=== PATIENT | female | born 1970 | race Hispanic/Latino ===

== ENCOUNTER 2016-08-29 19:56 | Emergency (ER) | payer OTHER ==
[~2016-08-29] VITALS: Ht 149.9 cm; Wt 58.1 kg
[~2016-08-29 19:56] MED LIST: ACETAMINOPHEN-1 EAC3 PO; GEMFIBROZIL600 M1 PO; HUMALOG100 UNIT/1 SC; HUMALOG100 UNIT/2 SC; LANTUS SOL100 UNIT/1 SC; LANTUS100 UNIT/1 SC; METFORMIN HCL500 M3 PO; TIZANIDINE HCL2 M1 PO; VALTREX1000 MG PO
--- NOTE | 2016-08-29 20:54 | ED GENERAL ADULT ---
History of Present Illness General Chief Complaint: General Adult Stated Complaint: PAIN WHEN SHE GOES TO BATHROOM , BURNING Source: patient Exam Limitations: no limitations Vital Signs & Intake/Output Vital Signs & Intake/Output Vital Signs Date Time Temp Pulse Resp B/P B/P Pulse O2 O2 Flow FiO2 Mean Ox Delivery Rate 08/294 97.1 93 20 122/80 95 Room Air 08/29 2002 98.1 106 20 145/96 95 Room Air Allergies Coded Allergies: No Known Allergies (11/20/15) Reconcile Medications Albuterol Sulfate (Ventolin Hfa) 90 MCG HFA.AER.AD 2 PUF INH PRN RESPIRATORY (Reported) Albuterol Sulfate 2.5 MG/3 ML (0.083 %) VIAL.NEB 1 Vial INH/LEMUEL PRN RESPIRATORY (Reported) Fenofibrate 160 MG TABLET 1 TAB PO DAILY CHOLESTEROL/TRIGLYCERIDES (Reported) Gabapentin 100 MG CAPSULE 1 CAP PO TID NERVE PAIN (Reported) Gemfibrozil 600 MG TABLET 1 TAB PO BID CHOLESTEROL (Reported) Insulin Lispro (Humalog) 100 UNIT/1 ML VIAL 20 UNITS SC 4 TIMES/DAY DIABETES (Reported) Insulin-Lantus (Lantus) 100 UNIT/1 ML VIAL 40 UNITS SC BID DIABETES (Reported ) Metformin HCl 500 MG TABLET 1 TAB PO BID DIABETES (Reported) Ondansetron (Zofran Odt) 4 MG TAB.RAPDIS 1 TAB SL TID PRN nausea Paroxetine HCl 20 MG TABLET 1 TAB PO DAILY MENTAL HEALTH (Reported) Quetiapine Fumarate 200 MG TABLET 1 TAB PO QPM MENTAL HEALTH (Reported) Tizanidine HCl 2 MG TABLET 1 TAB PO BID MUSCLE RELAXER (Reported) Triage Note: PRESENTS TO ED FOR EVALUATION OF HYPERGLYCEMIA AND BURNING UPON URINATION THAT BEGAN 3 DAYS AGO. Triage Nurses Notes Reviewed? yes HPI: Patient is a 46-year-old female presents complaining of diffuse abdominal pain, nausea, vomiting, urinary urgency, dysuria. Symptoms 3 days. Patient has vomited 4 times over the past 24 hours. Patient reports she has a history of hepatitis, is unsure if this feels similar. Patient checked her blood sugar earlier today and it was approximately 470. Patient reports her sister gave her insulin and her blood sugar went down into the high 200s. Patient denies fevers , chills, reports she is not sexually active. Past History Travel History Traveled to [place] past 21 day No Medical History Any Pertinent Medical History? 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 No Review of Systems Review of Systems Constitutional: Reports: chills. EENTM: Reports: no symptoms. Respiratory: Reports: no symptoms. Cardiovascular: Reports: no symptoms. GI: Reports: nausea, vomiting (4-5 episodes). Genitourinary: Reports: dysuria, pain, urgency. Musculoskeletal: Reports: no symptoms. Skin: Reports: no symptoms. Neurological/Psychological: Reports: depressed. Hematologic/Endocrine: Reports: polyuria, other (blood sugar 400's). Immunologic/Allergic: Reports: no symptoms. Physical Exam Physical Exam General Appearance: alert, awake, anxious Head: atraumatic, normal appearance Eyes: Bilateral: normal appearance, PERRL, EOMI. Ears, Nose, Throat: normal pharynx, normal ENT inspection, hearing grossly normal Neck: normal inspection, supple, full range of motion Respiratory: normal breath sounds, chest non-tender, no respiratory distress, lungs clear Cardiovascular: regular rate/rhythm Gastrointestinal: normal bowel sounds, soft, diffuse abdominal tenderness Back: normal inspection, normal range of motion, no vertebral tenderness, no cva tenderness Extremities: normal inspection, normal capillary refill, normal range of motion, no edema Neurologic/Psych: awake, alert, oriented x 3, depressed affect. no suicidal ideation Skin: intact, normal color, warm/dry Lymphatic: no anterior cervical zaid Core Measures ACS in differential dx? Yes ASA ordered for poss ACS? No-ACS ruled out CVA/TIA Diagnosis: No Severe Sepsis Present: No Septic Shock Present: No Progress Differential Diagnoses I considered the following diagnoses in my evaluation of the patient: UTI, pyelonephritis, pancreatitis, diverticulitis, SBO, mesenteric ischemia, DKA, dehydration Plan of Care: Orders Procedure Date/time Status LACTIC ACID 08/29 2356 Active Add-on Test (ER Only) 08/29 2149 Active TROPONIN LEVEL 08/29 2113 Complete EKG 08/29 2100 Active Add-on Test (ER Only) 08/30 2055 Active SERUM OSMOLALITY 08/30 2055 Complete LIPASE 08/30 2055 Complete LACTIC ACID 08/30 2055 Complete COMPREHENSIVE METABOLIC PANEL 08/30 2055 Complete CBC WITHOUT DIFFERENTIAL 08/30 2055 Complete ACETONE 08/30 2055 Complete URINE 08/29 2016 Complete URINALYSIS 08/30 2003 Complete Laboratory Tests 08/29/162113: Anion Gap 13, Estimated GFR > 60, BUN/Creatinine Ratio 26.7 H, Glucose 194 H, Serum Osmolality 301 H, Lactic Acid 1.8, Calcium 8.9, Total Bilirubin 0.8, AST 21, ALT 12, Alkaline Phosphatase 153 H, Troponin I < 0.01, Total Protein 7.3, Albumin 3.2 L, Globulin 4.1, Albumin/Globulin Ratio 0.8 L, Lipase 91, CBC w Diff MAN DIFF ORDERED, RBC 4.55, MCV 82.6, MCH 27.9, RDW 14.0, MPV 9.6, Segmented Neutrophils 52, Band Neutrophils 1, Lymphocytes 40, Monocytes 4, Eosinophils 3, Platelet Estimate ADEQUATE, Anisocytosis 1+, Microcytic Cells 1+, PUBS MCHC 34.7, Acetone Level NEGATIVE 08/29/162016: Urine Color YEL, Urine Clarity CLEAR, Urine pH 6.0, Ur Specific Marcy 1.015, Urine Protein NEG, Urine Ketones NEG, Urine Nitrite NEG, Urine Bilirubin NEG, Urine Urobilinogen 0.2, Ur Leukocyte Esterase NEG, Ur Microscopic EXAM NOT REQUIRED, Urine Hemoglobin NEG, Urine Glucose >=1000 H, Urine Test NEGATIVE 2234: Results of labs and imaging discussed with patient. Patient reports moderate improvement of her nausea and pain. 5: Patient feeling improved. Appears stable for discharge. Patient to follow up with her primary doctor in [place] tomorrow. (LISA SAVAGE,SEUN) Diagnostic Imaging: Viewed by Me: CT Scan. Discussed w/RAD: CT Scan. Radiology Impression: PATIENT: MINESH MONTANA PRESENT AGE: 46 PATIENT ACCOUNT NO: [id number] : 69 LOCATION: [facility] ORDERING PHYSICIAN: SEUN SAVAGE SERVICE DATE: 08/29/16 EXAM TYPE: CAT - CT ABD & PELVIS W IV CONTRAST EXAMINATION: CT ABDOMEN AND PELVIS WITH CONTRAST CLINICAL INFORMATION: Diffuse abdominal pain. Tenderness. Vomiting. COMPARISON: None TECHNIQUE: Multidetector volumetric imaging was performed of the abdomen and pelvis before and after the IV administration of 95 mL of Optiray 320 intravenous contrast. Sagittal and coronal reformatted images were obtained on the technologist's workstation. DLP: 267.65 mGy-cm FINDINGS: LUNG BASES: Hazy patchy airspace opacity of the right lung base. No pleural effusion LIVER, GALLBLADDER, AND BILIARY TREE: The liver is normal in size, shape, and attenuation. No focal hepatic lesion or biliary ductal dilatation is present. The gallbladder is unremarkable with no evidence of radiopaque gallstones, gallbladder wall thickening, or obvious pericholecystic inflammatory changes. PANCREAS: Unremarkable. SPLEEN: Unremarkable. ADRENAL GLANDS: Unremarkable. KIDNEYS AND URETERS: The kidneys are normal in size, shape, and attenuation. No hydronephrosis, hydroureter, or calculi seen. No perinephric stranding. BLADDER: Unremarkable. GASTROINTESTINAL TRACT: No acute change of the bowel. No bowel obstruction. No bowel wall thickening or edema. Large volume of stool in colon. The appendix is normal. Small bowel loops are normal. ABDOMINAL WALL: No significant hernia is appreciated. LYMPH NODES: Normal. VASCULAR: Unremarkable. PELVIC VISCERA: Uterus is anteverted. No adnexal abnormality. OSSEOUS STRUCTURES: Degenerative spondylosis of lower thoracic upper lumbar spine. IMPRESSION: No acute abnormality CT scan abdomen and pelvis DICTATED BY: IRAIDA CIFUENTES MD DATE/TIME DICTATED:08/29/162221 TI[employer] CENTER SUPERVISOR:RODY DATE/TIME TRANSCRIBED:08/29/162221 CONFIDENTIAL, DO NOT COPY WITHOUT APPROPRIATE AUTHORIZATION. <Electronically signed in Other Vendor System> SIGNED BY: IRAIDA CIFUENTES MD 08/29/162228 Initial ED EKG: normal axis, normal intervals, normal sinus rhythm, nonspecific ST T wave chg Departure Departure Time of Disposition: 2307 Disposition: HOME OR SELF CARE Condition: Stable Clinical Impression Primary Impression: Abdominal pain Qualifiers: Abdominal location: generalized Qualified Code: R10.84 - Generalized abdominal pain Referrals: PATIENT HAS NO PRIMARY CARE DR (PCP/Family) Additional Instructions: Follow up with your primary doctor tomorrow. Return to the ER if fevers, unable to stay hydrated, or worsening of symptoms. Departure Forms: Customer Survey General Discharge Information Prescriptions: Current Visit Scripts Ondansetron (Zofran Odt) 1 TAB SL TID PRN nausea #10 TAB Critical Care Note Critical Care Note Critical Care Time: non-applicable
[2016-08-29] MEDS ORDERED: PAROXETINE HCL20 M1 PO (21:59)
[2016-08-29] MEDS ORDERED: QUETIAPINE FUM200 M1 PO (21:59)
[2016-08-29] MEDS ORDERED: GABAPENTIN100 M2 PO (21:59)
[2016-08-29] MEDS ORDERED: FENOFIBRATE160 M1 PO (21:59)
[2016-08-29] MEDS ORDERED: VENTOLIN HFA18 GM INH (22:00)
[2016-08-29] MEDS ORDERED: ALBUTEROL2.5 MG/3 M INH/SOL (22:00)
[2016-08-29 22:01] LABS: HEMATOCRIT 37.6 % (37-47); MEAN CORPUSCULAR VOLUME 82.6 FL (81.0-99.0); MEAN PLATELET VOLUME 9.6 FL (7.4-10.4); PLATELET COUNT 361 /CUMM (130-400); RED BLOOD CELL CT 4.55 /CUMM (4.20-5.40); WHITE BLOOD CELL COUNT 14.4 /CUMM (4.8-10.8)
[2016-08-29 22:18] LABS: MEAN CORPUSCULAR HGB 27.9 PG (27.0-31.0); MEAN CORPUSCULAR HGB CONC 34.7 G/DL (33.0-37.0)
--- NOTE | 2016-08-29 22:29 | CT SCAN REPORT ---
EXAMINATION: CT ABDOMEN AND PELVIS WITH CONTRAST CLINICAL INFORMATION: Diffuse abdominal pain. Tenderness. Vomiting. COMPARISON: None TECHNIQUE: Multidetector volumetric imaging was performed of the abdomen and pelvis before and after the IV administration of 95 mL of Optiray 320 intravenous contrast. Sagittal and coronal reformatted images were obtained on the technologist's workstation. DLP: 267.65 mGy-cm FINDINGS: LUNG BASES: Hazy patchy airspace opacity of the right lung base. No pleural effusion LIVER, GALLBLADDER, AND BILIARY TREE: The liver is normal in size, shape, and attenuation. No focal hepatic lesion or biliary ductal dilatation is present. The gallbladder is unremarkable with no evidence of radiopaque gallstones, gallbladder wall thickening, or obvious pericholecystic inflammatory changes. PANCREAS: Unremarkable. SPLEEN: Unremarkable. ADRENAL GLANDS: Unremarkable. KIDNEYS AND URETERS: The kidneys are normal in size, shape, and attenuation. No hydronephrosis, hydroureter, or calculi seen. No perinephric stranding. BLADDER: Unremarkable. GASTROINTESTINAL TRACT: No acute change of the bowel. No bowel obstruction. No bowel wall thickening or edema. Large volume of stool in colon. The appendix is normal. Small bowel loops are normal. ABDOMINAL WALL: No significant hernia is appreciated. LYMPH NODES: Normal. VASCULAR: Unremarkable. PELVIC VISCERA: Uterus is anteverted. No adnexal abnormality. OSSEOUS STRUCTURES: Degenerative spondylosis of lower thoracic upper lumbar spine. IMPRESSION: No acute abnormality CT scan abdomen and pelvis
[2016-08-29] MEDS ORDERED: ZOFRAN ODT4 M1 SL (23:10)
[2016-08-29 23:14] VITALS: BP 122/80
== END 2016-08-29 23:15 ==
LOC: ERH 19:56
PROVIDERS: Physician Assistant
DX: R10.9 Unspecified abdominal pain (principal)
CPT/HCPCS: 74177; 81003; 81025; 93005; 93010; 96374; 96375; J1885; J2405

== ENCOUNTER 2016-09-23 19:44 | Inpatient (IN) | payer OTHER ==
[~2016-09-23] VITALS: Ht 149.9 cm; Wt 65.6 kg
[~2016-09-23 19:44] MED LIST changes: +ALBUTEROL2.5 MG/3 M INH/SOL; +FENOFIBRATE160 M1 PO; +GABAPENTIN100 M2 PO; +PAROXETINE HCL20 M1 PO; +QUETIAPINE FUM200 M1 PO; +VENTOLIN HFA18 GM INH; +ZOFRAN ODT4 M1 SL
--- NOTE | 2016-09-23 19:47 | NUR ---
PT'S SP02 AT [facility] WAS 88%
--- NOTE | 2016-09-23 19:49 | NUR ---
PT TO ROOM2 FOR EKG. PLACED ON NC 2L. PT WAS DIAGNOSED WITH PNEUMONIA AT [facility] ON 09/20 AND WAS DC WITH LEVAQUIN AND PROVENTIL INH. TODAY PT C/O CHEST PAIN AND UPPER ABD PAIN WITH COUGHING AND DEEP INSPIRATIONS, +SOB. O2SAT 89-91% ON RA. PT AFEBRILE.
--- NOTE | 2016-09-23 20:04 | NUR ---
PT TO ROOM 2, SEEN BY DR ANSARI, PT MOANING AND HYPERVENTILATING C/O PAIN IN NECK/THROAT AREA AND "ALL OVER." REPORTS RECENT CX WITH PNA AND BRONCHITIS, SCATTERED RHONCHI ON RIGHT AND SOME WHEEZING RIGHT UPPER WITH AUSCULTATION. 02 SATS 97% ON 2L, SINUS TACH 100S ON MONITOR.
--- NOTE | 2016-09-23 20:09 | ED DYSPNEA/ASTHMA COMPLAINT ---
History of Present Illness General Chief Complaint: General Adult Stated Complaint: "PER PT SOB, CP AND TIGHTNESS Source: patient, family Exam Limitations: language barrier Vital Signs & Intake/Output Vital Signs & Intake/Output Vital Signs Date Time Temp Pulse Resp B/P B/P Pulse O2 O2 Flow FiO2 Mean Ox Delivery Rate 09/24 0517 97.8 100 24 102/59 95 Nasal 3.0L Cannula 09/24 0319 97.7 105 25 109/74 94 Nasal 3.0L Cannula 09/24 0147 99 Nasal 2.0L Cannula 09/24 0131 97.4 99 24 120/96 95 Nasal 3.0L Cannula 09/23 2257 96 Nasal 2.5L Cannula 09/23 2241 98.2 325 91 3093/63 99 Nasal 2.0L Cannula 09/23 2141 99.4 104 26 129/75 96 Nasal 1.0L Cannula 09/23 2039 97 Nasal 1.0L Cannula 09/23 2016 98 Nasal 2.0L Cannula 09/23 1948 99.1 106 18 124/84 90 Room Air ED Intake and Output 09/24 0000 09/23 1200 Intake Total 2000 Output Total Balance 2000 Intake, IV 2000 Patient 130 lb Weight Weight Reported by Patient Measurement Method Allergies Coded Allergies: No Known Allergies (11/20/15) Reconcile Medications Albuterol Sulfate (Ventolin Hfa) 90 MCG HFA.AER.AD 2 PUF INH PRN RESPIRATORY (Reported) Albuterol Sulfate 2.5 MG/3 ML (0.083 %) VIAL.NEB 1 Vial INH/LEMUEL PRN RESPIRATORY (Reported) Fenofibrate 160 MG TABLET 1 TAB PO DAILY CHOLESTEROL/TRIGLYCERIDES (Reported) Gabapentin 100 MG CAPSULE 1 CAP PO TID NERVE PAIN (Reported) Gemfibrozil 600 MG TABLET 1 TAB PO BID CHOLESTEROL (Reported) Insulin Aspart, Recombinant (Novolog Flexpen) 100 UNIT/ML INSULN.PEN 20 UNITS SC TIDAC/HS DM (Reported) Insulin-Lantus (Lantus) 100 UNIT/1 ML VIAL 40 UNITS SC BID DIABETES (Reported ) Ketorolac Tromethamine (Acular) 0.5 % DROPS 1 GTT OD DAILY RIGHT EYE ( Reported) Lansoprazole 30 MG CAPSULE.DR 1 CAP PO DAILY GI (Reported) Levofloxacin (Levaquin) 500 MG TABLET 1 TAB PO DAILY ANTIBIOTIC (Reported) Metformin HCl 500 MG TABLET 1 TAB PO BID DIABETES (Reported) Paroxetine HCl 20 MG TABLET 1 TAB PO DAILY MENTAL HEALTH (Reported) Quetiapine Fumarate 100 MG TABLET 1 TAB PO QPM DEPRESSION (Reported) Tizanidine HCl 2 MG TABLET 1 TAB PO BID MUSCLE RELAXER (Reported) Tobramycin 0.3 % DROPS 1 GTT OD DAILY RIGHT EYE (Reported) Triage Nurses Notes Reviewed? yes Onset: Gradual Duration: day(s): (5) Timing: recent history Severity: moderate, severe Activities at Onset: none Associated Symptoms: anxiety, cough, chest pain, wheezing : No HPI: This is a 46-year-old female with history of insulin-dependent diabetes, reported blood sugars being high over the last few days who presents to the ER for chief complaint of worsening shortness of breath, chest pain and cough. She was seen at a hospital in [facility] 4 days ago and prescribed albuterol inhaler and Levaquin. She's been on his buttocks for 4 days but states her symptoms are getting worse. Denies any productive cough. States that she has extreme amount of pain while she coughs. They've been tried to control her blood sugar with insulin but have been unsuccessful. She is an active smoker but states she quit 2 days ago. Past History Travel History Traveled to [place] past 21 day No Medical History Any Pertinent Medical History? 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 No Review of Systems Review of Systems Constitutional: Denies: chills, fever. EENTM: Reports: no symptoms. Respiratory: Reports: cough, short of breath. Denies: sputum production. Cardiovascular: Reports: chest pain (WITH COUGH). GI: Reports: abdominal pain, bloating. Denies: diarrhea, nausea, vomiting. Genitourinary: Reports: no symptoms. Musculoskeletal: Reports: no symptoms. Skin: Reports: no symptoms. Neurological/Psychological: Denies: anxiety, depressed. Hematologic/Endocrine: Denies: bruising, bleeding, polyuria, polydipsia. Immunologic/Allergic: Denies: splenectomy. All Other Systems: Reviewed and Negative Physical Exam Physical Exam General Appearance: well developed/nourished, alert, awake, anxious, moderate distress, thin Head: atraumatic, normal appearance Eyes: Bilateral: PERRL, EOMI. Ears, Nose, Throat: normal pharynx, hearing grossly normal Neck: normal inspection, supple, full range of motion Respiratory: wheezing, respiratory distress Cardiovascular: tachycardia Peripheral Pulses: 2+ radial (R), 2+ radial (L) Gastrointestinal: soft, DISTENDED, TENDER Neurologic/Psych: no motor/sensory deficits, awake, alert, oriented x 3 Skin: intact, normal color, warm/dry Core Measures ACS in differential dx? No Severe Sepsis Present: No Septic Shock Present: No Progress Differential Diagnosis: bronchitis, CHF, pulmonary embolism, pneumonia Plan of Care: Orders Procedure Date/time Status Clear Liquid Diet 09/24 B Active LEGIONELLA URINARY ANTIGEN 09/24 0616 Active PHOSPHORUS 09/24 0600 Active MAGNESIUM 09/24 0600 Active LACTIC ACID 09/24 0600 Active CBC WITHOUT DIFFERENTIAL 09/24 0600 Active BASIC METABOLIC PANEL 09/24 0600 Active LOWER RESPIRATORY CULTURE 09/24 0453 Active DIRECT LDL 09/24 0352 Complete Admit to inpatient 09/24 0308 Active Add-on Test (ER Only) 09/24 0306 Active Pathway - chart 09/24 0302 Active LIPID PANEL 09/24 0300 Complete Lab Add-on Test 09/24 0258 Active Add-on Test (ER Only) 09/24 0251 Active TRC EVALUATION (GEN) 09/24 0250 Active Pathway - chart 09/24 0247 Active House Staff 09/24 0247 Active Code Status 09/24 0247 Active Patient Data 09/24 0243 Active RT ED ORDERS 09/24 0137 Active Add-on Test (ER Only) 09/24 0137 Active FingerStick- Glucose 09/24 0137 Active BASIC METABOLIC PANEL 09/24 0137 Complete Add-on Test (ER Only) 09/24 0018 Active VTE Mechanical Prophylaxis 09/24 UNK Active Vital Signs 09/24 UNK Active Nursing Misc 09/24 UNK Active LACTIC ACID 09/23 2307 Complete RT ED ORDERS 09/23 2248 Active Intake & Output 09/23 2240 Active URINE DRUGS OF ABUSE 09/23 2221 Complete URINALYSIS 09/23 2221 Complete Add-on Test (ER Only) 09/23 2218 Active SERUM OSMOLALITY 09/24 2039 Active MAGNESIUM 09/24 2039 Active LIPASE 09/24 2039 Active HUMAN BETA HCG SCREEN 09/24 2039 Active GLYCOSYLATED HGB 09/24 2039 Active AMYLASE 09/24 2039 Active RT ED ORDERS 09/24 2015 Active BLOOD CULTURE 09/23 2006 Active LACTIC ACID 09/23 2006 Complete MIXED VENOUS BLOOD GAS (GEN) 09/23 2004 Complete COMPREHENSIVE METABOLIC PANEL 09/23 2004 Active CBC WITHOUT DIFFERENTIAL 09/23 2004 Complete ACETONE 09/23 2004 Active EKG 09/23 194 Active Current Medications Sig/Samara Start time Last Medication Dose Stop Time Status Admin Quetiapine Fumarate 100 MG QPM 09/24 2200 UNVr (Seroquel) Albuterol Sulfate 2 PUF DAILY 09/24 1000 UNVr (Ventolin) Azithromycin 500 MG DAILY 09/24 1000 UNVr (Zithromax) Sodium Chloride 250 ML (Normal Saline 0.9%) Ceftriaxone Sodium 1,000 MG DAILY 09/24 1000 UNVr (Rocephin) Gemfibrozil 600 MG BID 09/24 1000 UNVr (Lopid 600 MG Tab) Pantoprazole Sodium 40 MG DAILY 09/24 1000 UNVr (Protonix) Paroxetine HCl 20 MG DAILY 09/24 1000 UNVr (Paxil) Tizanidine HCl 2 MG BID 09/24 1000 UNVr (Zanaflex) Omeprazole 40 MG DAILY AC 09/24 0700 CAN (Prilosec) Heparin Sodium 5,000 UNIT Q8 09/24 0600 UNVr 09/24 (Porcine) 0612 Insulin Human Regular 100 UNIT Q24H 09/24 0400 UNVr 09/24 (Novolin R (Insulin 0420 Drip)) Sodium Chloride 100 ML (Normal Saline 0.9%) Sodium Chloride 1,000 ML Q6H 09/24 0345 UNVr 09/24 (Normal Saline 0.9%) 0351 Morphine Sulfate 2 MG Q4 PRN 09/24 0315 UNVr 09/24 (Morphine) 0612 Oxycodone HCl 5 MG Q6 PRN 09/24 0315 UNVr (Roxicodone) Acetaminophen 650 MG Q6P PRN 09/24 0300 UNVr (Tylenol) Laboratory Tests 09/24/16 0352: Anion Gap 12, Estimated GFR > 60, BUN/Creatinine Ratio 40.0 H, Glucose 418 H, Calcium 8.3 L, Triglycerides 3046 H, Cholesterol 588 H, LDL Cholesterol Direct < 60.00, LDL Cholesterol, Calc ND, HDL Cholesterol 47, Cholesterol/HDL Ratio 12.5 H 09/24/16 0300: Lactic Acid 2.1 09/24/16 0018: Total Beta HCG Cancelled 09/23/16 2233: Urine Opiates Screen 153.00, Methadone Screen 59, Barbiturate Screen < 60, Ur Phencyclidine Scrn < 6.00, Amphetamines Screen < 100, U Benzodiazepines Scrn < 85, Urine Cocaine Screen < 50, Urine Cannabis Screen < 5.00, Urine Color STRAW, Urine Clarity CLEAR, Urine pH 6.0, Ur Specific [place] <= 1.005, Urine Protein NEG, Urine Ketones NEG, Urine Nitrite NEG, Urine Bilirubin NEG, Urine Urobilinogen 0.2, Ur Leukocyte Esterase NEG, Ur Microscopic EXAM NOT REQUIRED, Urine Hemoglobin NEG, Urine Glucose >=1000 H 09/23/163: Bicarbonate Actual 22, Mixed VBG pH 7.38, Mixed VBG pCO2 39 L, Mixed VBG O2 Saturation 49 H, P-50 (Temp Corrected) N, Carboxyhemoglobin 0.9 L, O2 Concentration % 1L, Temperature 99.6, O2 Delivery Method NC, Phlebotomy Draw Site VENOUS 09/23/162039: Lactic Acid 4.0 H 09/23/162039: Anion Gap 14, Estimated GFR > 60, BUN/Creatinine Ratio 22.5, Glucose 886 *H, Hemoglobin A1c Pending, Serum Osmolality 329 H, Calcium 8.7, Magnesium 1.9, Total Bilirubin 0.6, AST 21, ALT 28, Alkaline Phosphatase 145 H, Total Protein 6.4, Albumin 3.4 L, Globulin 3.0, Albumin/Globulin Ratio 1.1, Amylase 35, Lipase 42, Total Beta HCG NEGATIVE, CBC w Diff MAN DIFF ORDERED, RBC 3.92 L, MCV 85.5, MCH 29.1, RDW 14.8 H, MPV 9.5, Segmented Neutrophils 85 H, Band Neutrophils 1, Lymphocytes 13 L, Monocytes 1 L, Platelet Estimate ADEQUATE, Normocytic RBCs VERIFIED, Normochromic RBCs VERIFIED, PUBS MCHC 34.1, Fld Total RBCs Counted 100, Acetone Level NEGATIVE Microbiology 09/25 615 URINE ROUT: Legionella Antigen - ORD 09/24 0453 LOWER RESP: Respiratory Culture - COLB 09/24 0453 LOWER RESP: Gram Stain - COLB 09/23 2114 BLOOD: Blood Culture - RECD 09/24 2039 BLOOD: Blood Culture - RECD DUONEB, IV FLUIDS, LABS, ACETONE, MIXED VENOUS 10 PM PATIENT WITH HONC, PNEUMONIA, WILL SEND TO [facility] FOR CT ABDOMEN, VERY TENDER, DISTENDED. 10:15PM D/W DR DIEZ FOR ADMISSION. WILL REQUIRE CT ABDOMEN FIRST. PENDING TRANSFER TO [facility] FOR CT. 3:[address] REPORT STILL PENDING. WILL ADMIT TO ICU AT THIS TIME. HOUSESTAFF AT BEDSIDE. (COTY TORRES,BRIGIDO) Diagnostic Imaging: Viewed by Me: Radiology Read, CT Scan. Discussed w/RAD: Radiology Read, CT Scan. Radiology Impression: CT ABD/PELVIS - NO ACUTE PROCESS, PNEUMONIA CXR Impression: PATIENT: MINESH MONTANA PRESENT AGE: 46 PATIENT ACCOUNT NO: [id number] : 69 LOCATION: [facility] ORDERING PHYSICIAN: BRIGIDO ANSARI MD SERVICE DATE: 09/23/16 EXAM TYPE: RAD - XRY -PORTABLE CHEST XRAY EXAMINATION: XR PORTABLE CHEST CLINICAL INFORMATION: Fever, cough and SOB. COMPARISON: None TECHNIQUE: Portable frontal view of the chest was obtained. FINDINGS: Both lungs are well expanded. There is patchy airspace disease right lower lobe and left lower lobe parahilar region suggestive of infiltrates. The heart size and pulmonary vascularity is normal. No gross bony abnormality seen. IMPRESSION: Right lower lobe and left lower lobe parahilar infiltrate. DICTATED BY: CHYNA METCALF MD DATE/TIME DICTATED:09/23/162056 STATISTICAL FINANCIAL ANALYST:RODY DATE/TIME TRANSCRIBED:09/23/162056 CONFIDENTIAL, DO NOT COPY WITHOUT APPROPRIATE AUTHORIZATION. <Electronically signed in Other Vendor System> SIGNED BY: CHYNA METCALF MD 09/23/162102 Initial ED EKG: SINUS TACHYCARDIA Rhythm Strip: sinus tachycardia Departure Departure Time of Disposition: 311 Disposition: STILL A PATIENT Condition: Stable Clinical Impression Primary Impression: Pneumonia Secondary Impressions: Hyperosmolar (nonketotic) coma Referrals: UNKNOWN (PCP/Family) Departure Forms: Customer Survey General Discharge Information Admission Note Spoke With: FREDERICK DIEZ MDI Documentation of Exam: Documentation of any treatments & extenuating circumstances including Concerns Regarding Discharge (functional status, medication knowledge or non-compliance, living conditions, etc.) that warrant an admission rather than observation: [ INSULIN DRIP, IV FLUIDS, IV ABX, TRC/NEBS, F/U CULTURES, MONITOR I/O, ENDOCRINOLOGY CONSULTATION, SMOKE CESSATION COUNSELLING] Critical Care Note Critical Care Note Critical Care Time: 75-104 min
[2016-09-23] MEDS ORDERED: LEVAQUIN500 M1 PO (20:19)
[2016-09-23] MEDS ORDERED: NOVOLOG FL100 UNIT/1 SC (20:20)
[2016-09-23] MEDS ORDERED: ACULAR5 ML OD (20:22)
[2016-09-23] MEDS ORDERED: LANSOPRAZOLE30 M2 PO (20:22)
[2016-09-23] MEDS ORDERED: TOBRAMYCIN5 ML OD (20:22)
--- NOTE | 2016-09-23 20:32 | NUR ---
SEEN BY , NEB DONE BY RT. MST AT BEDSIDE CURRENTLY ATTEMPTING LABS/1 SET CX, PT SHOUTING AND YELLING "STOP, TAKE IT OUT, IT HURTS," THOUGH IS ALLOWING PROCEDURE TO CONTINUE WITH ENCOURAGEMENT FROM VISITOR.
--- NOTE | 2016-09-23 20:42 | NUR ---
PCXR AT BEDSIDE
[2016-09-23 20:47] LABS: HEMATOCRIT 33.6 % (37-47); MEAN CORPUSCULAR HGB 29.1 PG (27.0-31.0); MEAN CORPUSCULAR HGB CONC 34.1 G/DL (33.0-37.0); MEAN CORPUSCULAR VOLUME 85.5 FL (81.0-99.0); MEAN PLATELET VOLUME 9.5 FL (7.4-10.4); PLATELET COUNT 293 /CUMM (130-400); RBC DISTRIBUTION WIDTH 14.8 % (11.5-14.5); RED BLOOD CELL CT 3.92 /CUMM (4.20-5.40); WHITE BLOOD CELL COUNT 13.4 /CUMM (4.8-10.8)
--- NOTE | 2016-09-23 21:03 | RADIOLOGY REPORT ---
EXAMINATION: XR PORTABLE CHEST CLINICAL INFORMATION: Fever, cough and SOB. COMPARISON: None TECHNIQUE: Portable frontal view of the chest was obtained. FINDINGS: Both lungs are well expanded. There is patchy airspace disease right lower lobe and left lower lobe parahilar region suggestive of infiltrates. The heart size and pulmonary vascularity is normal. No gross bony abnormality seen. IMPRESSION: Right lower lobe and left lower lobe parahilar infiltrate.
--- NOTE | 2016-09-23 21:42 | NUR ---
IV EST BY ALEX VALERA AND MULTIPLE ATTEMPTS FOR LABS/IV BY MULTIPLE STAFF. PT NOW C/O DRY MOUTH AND REPEATEDLY REQUESTING TO DRINK, ICE CHIPS PROVIDED WITH LABS PENDING AND POSS DKA. PT STATING SHE HAS NOT TAKEN HER INSULIN FOR SEVERAL DAYS BECAUSE SHE HAS BEEN TRAVELING, EDUCATED ON EFFECTS OF HYPERGLYCEMIA AND ENC TO TAKE MEDS PRESCRIBED.
--- NOTE | 2016-09-23 21:51 | NUR ---
CRITICAL TEST RESULTS [id number] MINESH MONTANA 46 F TESTS AND RESULTS: GLUCOSE 886, LACTIC 4.0 Results received and read back by: HAILE GODDARD Results received date and time: 09/23/162150 The following provider was notified of the results, and read the results back: DR ANSARI Notified date and time: 09/23/16 at 2152
--- NOTE | 2016-09-23 22:18 | NUR ---
[facility] CALLED FOR TRANSPORT TO [facility] RUN# [id number] ETA 90MINS
--- NOTE | 2016-09-23 22:40 | NUR ---
URINE TRIO SENT TO LAB.
--- NOTE | 2016-09-23 22:56 | NUR ---
PT AUDIBLY WHEEZING, SATS DOWN TO 93-94 WITH 02 AT 3L, REQUESTING NEBS AND REPORTING SHE IS TAKING Q4H ATC AT HOME. INFORMED AND RT AT BEDSIDE FOR NEB TX.
--- NOTE | 2016-09-23 23:12 | NUR ---
PT BG 345, INSULIN DECREASED PER VERBAL ORDER FROM . PT BEING TRANSPORTED TO [facility] VIA STRETCHER BY [facility] FOR CAT SCAN.
--- NOTE | 2016-09-23 23:14 | NUR ---
FS NOW 345, INSULIN GTT CHANGED TO 3UNITS/HOUR PER DR DIEZ. [facility] PRESENT FOR TRANSFER, REPORT GIVEN TO MARTIN JOHNSON WHO WILL ACCOMPANY PT.
--- NOTE | 2016-09-23 23:44 | NUR ---
PT BG = 330, INSULIN DRIP REMAINS AT 3UNITS/HR. PT OFFERING NO COMPLAINTS AT THIS TIME.
--- NOTE | 2016-09-24 | NUR ---
PT BG = 307. INSULIN DRIP REMAINS AT 3UNITS/HR. PT REMAINS IN NSR, OFFERING NO COMPLAINTS AT THIS TIME. PT REMAINS ON 3L NC O2 SAT 99%.
--- NOTE | 2016-09-24 00:41 | NUR ---
PT BG = 357. INSULIN DRIP REMAINS AT 3UNITS/HR. PT SECOND IV IN RIGHT HAND BECAME DISLODGED, CATHTER NOTED TO BE INTACT. PT REMAINS IN NSR, OFFERING NO COMPLAINTS AT THIS TIME.
--- NOTE | 2016-09-24 01:09 | NUR ---
PT BG = 312. INSULIN DRIP REMAINS AT 3UNTIS/HR. 1LITER NS INFUSED. PT REMAINS IN NSR, O2 SAT 98% ON 3L NC.
--- NOTE | 2016-09-24 01:27 | NUR ---
BG = 271. INSULIN DRIP REMAINS AT 3UNITS/HR. PT REMAINS IN NSR, 99% ON 3L NC. PT TO AND FROM CAT SCAN, TOLERATED WELL.
--- NOTE | 2016-09-24 01:39 | NUR ---
PT RETURNED BACK TO ROOM 2 VIA STRETCHER. 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 PT BG = 269. AT BEDSIDE FOR PT EVAL.
--- NOTE | 2016-09-24 01:39 | NUR ---
INSULIN NOTED TO BE FINISHED, MADE AWARE.
[2016-09-24] MEDS ORDERED: AMOXICILLI400 MG/51 PO (01:42)
--- NOTE | 2016-09-24 02:00 | NUR ---
PT MEDICATED WITH 4MG MORPHINE BY ALEX JOYCE PER EMAR
--- NOTE | 2016-09-24 02:10 | History & Physical ---
CHRISTOPHER TORRES,NEFTALIShane 09/24/16 0207: General Information and [facility] MD Statement: I have seen and personally examined MINESH MONTANA and documented this H&P. The patient is a 46 year old F who presented with a patient stated chief complaint of []. Source of Information: patient Exam Limitations: no limitations History of Present Illness: This is a 46-year-old female, [place] of [place], with past medical history significant for insulin-dependent diabetes, multiple episodes of pancreatitis, hypercholesterolemia, who comes in for chief complaint of malaise, abdominal pain and shortness of breath. Per patient, around September 15 she started feeling poor. History is notable for sick contact in her grandchild with cough/cold. She stated she was having URI symptoms and went to a hospital in [place] and got antibiotics including Levaquin around September 19. Patient states she was compliant with her medications but found no improvement in her status. As such, patient called her sister for assistance, and she was brought to [facility]. Patient states that she continues to feel worse, her URI symptoms expand into abdominal symptoms as well. She states she was having shortness of breath, worsening cough with sputum, and diffuse abdominal pain. Today she went to visit her mother in [place] and forgot to take her insulin with her. As such, patient states that she did not take any of her insulin today and had very little by mouth intake. She states that her cough, shortness of breath and abdominal pain acutely worsened the point she required emergency department services Recent history significant for dental surgery with tooth extraction about 2 weeks ago. Patient was given amoxicillin for about a week after the procedure. She states that she was in her usual health at that time. Patient stopped smoking about 4 days ago. She has a half pack per day "forever" history prior to that. Denies any drugs or alcohol. She also states that she has been admitted for pancreatitis over 10 times in the past; about once a year. Patient is unsure of etiology of recurrent pancreatitis, but gives vague hx of "high cholesterol." At home she states she had a Tmax 100.4; no n/v/constipation/diarrhea/urinary or bladder change. Does endorse increased thirst. 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 Ambulation: independent IADLs Independent: shopping, housework, finances, food prep, telephone, transportation , medication admin. Review of Systems Review of Systems Constitutional: Reports: see HPI. Exam & Diagnostic Data Last 24 Hrs of Vital Signs/I&O Vital Signs Date Time Temp Pulse Resp B/P B/P Pulse O2 O2 Flow FiO2 Mean Ox Delivery Rate 09/24 0907 Nasal 3.0L Cannula 09/24 0851 97 Nasal 3.0L Cannula 09/24 0744 96.3 105 18 115/59 96 Nasal 3.0L Cannula 09/24 0642 97.3 102 18 109/61 99 Nasal 3.0L Cannula 09/24 0517 97.8 100 24 102/59 95 Nasal 3.0L Cannula / 0319 97.7 105 25 109/74 94 Nasal 3.0L Cannula 09/24 0147 99 Nasal 2.0L Cannula / 0131 97.4 99 24 120/96 95 Nasal 3.0L Cannula 09/23 2257 96 Nasal 2.5L Cannula 09/23 2241 98.2 261 32 7094/63 99 Nasal 2.0L Cannula 09/23 2141 99.4 104 26 129/75 96 Nasal 1.0L Cannula 09/23 2039 97 Nasal 1.0L Cannula 09/23 2017 98 Nasal 2.0L Cannula / 1948 99.1 106 18 124/84 90 Room Air Intake & Output 09/24 1600 04 0800 09/24 0000 Intake Total 220 2000 Output Total Balance 220 2000 Intake, IV 2000 Intake, Oral 220 Patient 58.967 kg Weight Weight Reported by Patient Measurement Method Physical Exam General Appearance Alert, Oriented X3, Cooperative, Mild Distress HEENT Atraumatic, currently ongioing nebulizer treatment Neck Supple Lungs diffusely crackly with rhonchi on both sides Abdomen diffusely tender to palpation. no reobund or guarding. no friend burgerwendy Neurological Normal Speech, Sensation Intact, Cranial Nerves 3-12 NL Extremities No Clubbing, No Edema Assessment/Plan Assessment: This is a 46-year-old female past medical history of insulin-dependent diabetes, hypertrigliceridemia, and pancreatitis comes in for chief complaint of worsening shortness of breath, chest pain and cough. In ED she was found to have evidence of Hyperosmolar hyperglycemic non-ketotic in addition to a pulmonary exam significant for diffuse crackles and rhonchi. As [facility] CAT scan was not working she was sent to [facility] for imaging. Vitals: 99.1, 106, 18, 124/84, 90. VBG: PH 7.38, PCO2 39, bicarbonate 22. CBC: White blood cell 13.4, hemoglobin 3.92, hematocrit 33.6, plt 293. MCV 85.5 Left shift with 85% segmented neutrophils and 1 band BEP: Sodium 124, potassium 4.5, chloride 91, bicarbonate 18, BUN 18, creatinine 0.8. Anion gap 14 Glucose 886; negative acetone Serum osmolality 329 Lactic acid 4.0 AST and ALT with normal limits, alkaline phosphatase 145 CXR IMPRESSION: Right lower lobe and left lower lobe parahilar infiltrate. PENDING ABD CAT SCAN READ FROM [facility] PLAN HHS: She comes in with blood sugar 886 with no ketones, with osmolarity of 329. Meets criteria for hyperosmolar hyperglycemic state. She does have history of IDDM, with recent infectious stressor and non-compliance with insulin today. Per patient, she's been having elevated blood sugar readings at home. * Insulin drip * aggressive fluid replacement * ICU admission * Q1 FS * endo consult; spoke with Dr. Rodríguez. Pneumonia: Pt has significant SOB and pulmonary exam is significant for rhonchi and crackles. She was previously treated on outpatient basis with Levaquin with no change in symptoms. She has WBC 15.5 and HR 106 so unsure if her SIRS+ criteria is 2/2 to her hyperosmolar state or to sepsis 2/2 PNA. * ceftriaxone and azithro for cap * Legionella urine antigen * Follow up CT * Nebs * NC for O2 sats > 92 pseudo-hyponatremia: Corrected Na at 137. * Con't monitor Lactic Acid: Pt has lactic acid of 4 on admission. Raises further concern for sepsis 2/2 PNA... * Aggressive hydration * Monitor History of recurrent pancreatitis: her hx is positive for multiple episodes of pancreatitis. Pt currently has abdominal pain. * Follow up ABD CT * lipase, amylase * lipid panel * vitals q4 full code chemical dvt ppx diabetic diet As Ranked By This Provider Problem List: 1. Hyperglycemia 2. Abdominal pain 3. Pneumonia 4. Hyperosmolar (nonketotic) coma Core Measures/Miscellaneous Acute Coronary Syndrome ACS Diagnosis: No Cerebrovascular Accident CVA/TIA Diagnosis: No Congestive Heart Failure CHF Diagnosis: No Venous Thromboembolism VTE Risk Factors: Acute medical illness, Age > 40 No [facility] VTE prophylaxis d/t: No contraindications No VTE Pharm Prophylaxis d/t: No contraindications VTE Diagnosis: No VTE Type: NONE VTE Confirmed by (Test): NONE Severe Sepsis Severe Sepsis Present: No Septic Shock Septic Shock Present: No Miscellaneous Documentation Attending Case Discussed With: FREDERICK DIEZ MDShane Primary Care Physician: UNKNOWN Patient sees these Specialists unknown Level of Patient Care: Critical Care (CRI) HUSSAIN FONSECA MD,JOHN 09/24/16 0252: General Information and HPI Allergies/Medications Home Med list Albuterol Sulfate (Ventolin Hfa) 90 MCG HFA.AER.AD 2 PUF INH PRN RESPIRATORY (Reported) Albuterol Sulfate 2.5 MG/3 ML (0.083 %) VIAL.NEB 1 Vial INH/LEMUEL PRN RESPIRATORY (Reported) Fenofibrate 160 MG TABLET 1 TAB PO DAILY CHOLESTEROL/TRIGLYCERIDES (Reported) Gabapentin 100 MG CAPSULE 1 CAP PO TID NERVE PAIN (Reported) Gemfibrozil 600 MG TABLET 1 TAB PO BID CHOLESTEROL (Reported) Insulin Aspart, Recombinant (Novolog Flexpen) 100 UNIT/ML INSULN.PEN 20 UNITS SC TIDAC/HS DM (Reported) Insulin-Lantus (Lantus) 100 UNIT/1 ML VIAL 40 UNITS SC BID DIABETES (Reported ) Ketorolac Tromethamine (Acular) 0.5 % DROPS 1 GTT OD DAILY RIGHT EYE ( Reported) Lansoprazole 30 MG CAPSULE.DR 1 CAP PO DAILY GI (Reported) Levofloxacin (Levaquin) 500 MG TABLET 1 TAB PO DAILY ANTIBIOTIC (Reported) Metformin HCl 500 MG TABLET 1 TAB PO BID DIABETES (Reported) Paroxetine HCl 20 MG TABLET 1 TAB PO DAILY MENTAL HEALTH (Reported) Quetiapine Fumarate 100 MG TABLET 1 TAB PO QPM DEPRESSION (Reported) Tizanidine HCl 2 MG TABLET 1 TAB PO BID MUSCLE RELAXER (Reported) Tobramycin 0.3 % DROPS 1 GTT OD DAILY RIGHT EYE (Reported) Resident Review Statement Resident Statement: examined this patient, discussed with fashion intern, agreed with fashion intern, reviewed EMR data (avail) Other Findings: 46-year-old female ex- smoker quit smoking 4 days ago, depression, anxiety, insulin-dependent diabetes mellitus, hyperlipidemia, hypertriglyceridemia, pancreatitis 10 admissions in different hospitals at [place] as per patient likely secondary to hypertriglyceridemia, came to emergency department with chief complaint of worsening shortness of breath chest pain and cough. Vitals emergency department, MAXIMUM TEMPERATURE 99.4, tachycardic, tachypneic, systolic blood pressure 129-112 and diastolic blood pressure of 70s, oxygen saturation of 97-99% on 2 L nasal cannula. On examination, patient is alert and oriented in mild distress lying in the bed, dry mucous membranes, mild wheezing on lung examination, mildly tachycardic S1 and S2, distended abdomen, grossly intact neurological examination. Labs were significant for leukocytosis of 13.4, hemoglobin of 11.4 and hematocrit of 33.6, platelet count of 293, electrolyte showed pseudohyponatremia sodium of 124, bicarbonate of 18 blood glucose of 886, lactic acid of 4, serum osmolarity of 329, acetone levels negative, UA positive for urine glucose. Patient received 3 L of normal saline, IV steroids, ceftriaxone, azithromycin, inhaler treatment, IV insulin, and pain management. Patient was admitted in ICU for the management of following problems HHS Differential diagnosis will include another episode of HHS (high blood sugar, No anion gap metabolic acidosis) given his noncompliance with insulin pump leading to insulin deficiency vs possible infection (secondary to community-acquired pneumonia) versus unlikely intoxication, inflammation or ischemia. Admit to ICU Vitals every shift Blood sugars every hour BEP every 4 hours Insulin drip, If blood sugars less than 300 decrease insulin drip to less than or equal to 0.05 units per KG per hour and plan to switch to SC IV fluids D5 half normal saline at the rate of 150 mL per hour when glucose less than 250 Will correct all electronic abnormalities including potassium magnesium and phosphate Leukocytosis can be reactive, rule out underlying infection Start by mouth consistent carbohydrate diet as patient tolerates Monitor Urine output and electrolytes Community-acquired pneumonia/ Sepsis Patient meets the criteria for sepsis even her tachycardia and white count, patient also received 3 L of normal saline. Most likely source of sepsis is secondary to community-acquired pneumonia. Patient also has high lactic acid most likely type A secondary to hypoperfusion but the possibility of type B lactic acidosis cannot be ruled out given the patient used to take metformin. - Continous pulse oximetry - Send sputum cultures - Follow blood cultures x 2 - Check Legionella and strep Antigen - ABxs cefazolin and azithromycin for community-acquired PNA - TRC nebs as needed Patient is full code Patient is on subcutaneous heparin for DVT prophylaxis Patient is on diabetic diet Patient is on pain management RG TORRES, [facility] 09/24/16 0415: Attending MD Review Statement Attending Statement Attending MD Statement: examined this patient, discuss w/resident/PA/ROOF PROMENADE TILE SETTER, agreed w/resident/PA/ROOF PROMENADE TILE SETTER Attending Assessment/Plan: 46 yo yakut speaking F, smoker quit 3 days ago, with h/o insulin dependent diabetes, depression, anxiety, pancreatitis 2/2 hyperTG, who is a resident of [place], was brought in for c/o worsening dyspnea, epigastric abdominal pain and cough. Around September 14, patient developed cough, congestion and fever, grandson being a sick contact. She was seen at a [facility] ER and started on Levaquin with albuterol for bronchopneumonia. Her sister who lives in [place] brought her here and they traveled to [facility] today to visit their mother. Patient did not take her insulin today and did not eat well. Her symptoms got worse and hence she came to the ER. She reports her sugars have been on the higher range although she reports compliance with insulin. Patient was transferred to [facility] for CT abd/pelvis and on return it was noted that half bag of insulin drip was empty, which we presume might have leaked when patient pulled out the IV by mistake while at CT. Patient's sugars have been elevated at 350's since arrival back from CT, unlikely that insulin drip was running at a fast rate as she should have been hypoglycemic. Vitals: Tmax 99.4, tachycardic to 104, BP 129/75, sats 88 - 90% RA --> 96-97% on 1L. Exam: AAO, in mild respiratory distress, dry mucous membranes, skin warm and dry, Chest b/l rhonchi R>L with scattered wheeze, Heart S1S2 tachycardic, Abd benign. LE: no edema. Labs: WBC 13.4, H/H 11.4/33.6, Na 124, bicarb 18, AG 14, BUN 18, creat 0.8, glucose 886, lactic acid 4.0. S. Osm 329. Beta HCG neg. UA positive for glucose >1000, Utox negative. VB.38/39/81/22. Acetone negative. CXR: Right lower lobe and left lower lobe parahilar infiltrate. EKG: Sinus tachycardia. CT abd/pelvis: Interval worsening of patchy groundglass airspace opacities in visualized bilateral lower lobes, right middle lobe and lingula, s/ o worsening infective/ inflammatory infiltrate. No acute abdominal pelvic abnormalities. Small left adrenal nodule likely adenoma. 1. Hyperosmolar hyperglycemic nonketotic state in the setting of insulin noncompliance with acute respiratory infection. ICU admit, accucheks Q1 hour, check HbA1c, NS 3 L bolus followed by maintenance of 250/hr, insulin drip titrate based on sugars, Endo consult. ICU bundle every 3hours. Clear liquid diet. Change fluids to D51/2NS once sugars <250. Plan to transition to subcut insulin in AM. Replete all electrolytes. 2. Acute hypoxic respiratory failure, sepsis, multilobar community acquired pneumonia, failed outpatient therapy. Lactic acidosis. Panculture, TRC nebs, check urine legionella and strep antigen, IV ceftriaxone and azithromycin. IV fluids, trend lactic acid. She received one dose of solumedrol in ER, will hold off further steroids. Smoking cessation counseling, reinforced. 3. Epigastric abdominal discomfort, likely gastritis. Amylase/ lipase normal. CT does not suggest any acute abdominal abnormality. Will maintain on IV PPI. 4. Pseudohyponatremia. Corrected sodium for glucose is 137. DVT ppx Hep SC. Full code. TTS > 45 mins
--- NOTE | 2016-09-24 02:16 | NUR ---
HOUSE STAFF AT BEDSIDE FOR PT EVAL. PT REMAINS IN NSR, ON CONTINUOUS DUO NEB PLACED BY RT MONICA. O2 SAT 98%
--- NOTE | 2016-09-24 02:25 | NUR ---
PT BG = 258. PT REPORTS RELIEF FROM MORPHINE, PAIN NOW 07/31. PT REMAINS ON CONTINUOUS DUO NEB O2 SAT 98%. PT REMAINS IN NSR/ST AT 110. NO COMPLAINTS AT THIS TIME.
--- NOTE | 2016-09-24 03:00 | NUR ---
PT BG 339.
--- NOTE | 2016-09-24 03:01 | NUR ---
SECOND IV EST #20 IN RIGHT HAND BY ALEX JOYCE. BLOOD OBTAINED AND SENT TO LAB -SST,URENA BY ALEX JOYCE ZITHROMAX DRIP RE-ADMINSTERED AT 250MLS/HR. PT REQUESTING SOMETHING TO EAT, HOUSE STAFF PAGED.
[2016-09-24] MEDS ORDERED: QUETIAPINE FUM100 M1 PO (03:15)
--- NOTE | 2016-09-24 03:50 | NUR ---
NS INFUSING AT 150MLS/HR. PT BG 366 AT THIS TIME. REPEAT SST OBTAINED AND SENT TO LAB BY YG MAYO
--- NOTE | 2016-09-24 03:53 | Admission Certification ---
Admission Certification Certification Statement - As attending physician, I certify that at the time of - admission, based on clinical presentation, severity of - symptoms, need for further diagnostic testing and - therapeutic interventions, and risk of adverse outcomes - without in-hospital treatment, in my clinical assessment, - this patient requires an acute hospital stay for a minimum - of two nights or longer. I have also considered psychsocial - factors such as support system, advanced age, financial - issues, cognitive issues, and failed out-patient treatments, - past re-admission history, safety of patient, and lack of - compliance as applicable. Specific rationale supporting this admission is: Acute hypoxic respiratory failure, multilobar community acquired pneumonia, failed outpatient therapy. Hyperosmolar hyperglycemic nonketotic state requiring ICU level of care.
--- NOTE | 2016-09-24 03:58 | NUR ---
CRITICAL TEST RESULTS [id number] MINESH MONTANA 46 F TESTS AND RESULTS: LACTIC ACID 2.1 Results received and read back by: MARTIN SANTIAGO Results received date and time: 09/24/16 0358 The following provider was notified of the results, and read the results back: HOUSE STAFF Notified date and time: 09/24/16 at 0358
--- NOTE | 2016-09-24 04:00 | NUR ---
RECIEVED VERBAL ORDER FROM HOUSE STAFF TO INCREASE NS INFUSING TO 250MLS/HR.
--- NOTE | 2016-09-24 04:22 | NUR ---
NOVOLIN R INSULIN DRIP INITATED AT 3UNITS/HR PER EMAR. COSIGNED BY ALEX VELAZQUEZ. BG 366.
--- NOTE | 2016-09-24 05:03 | NUR ---
PTS BG 452. HOUSE STAFF MADE AWARE. INSULIN DRIP INCREASED TO 5UNITS/HR BY VERBAL ORDER BY HOUSE STAFF. PT ALSO PLACED ON CLEAR LIQUID DIET, PT MADE AWARE. ICE CHIPS PROVIDED FOR PT.
--- NOTE | 2016-09-24 06:12 | NUR ---
PT MEDICATED WITH 2MG MORPHINE, 5,000UNITS HEPARIN SC. PT PROVIDED WITH CRACKERS WITH VERBAL PERMISSION FROM HOUSE STAFF. TOLERATING WELL. BG = 465. HOUSE STAFF PAGED
--- NOTE | 2016-09-24 06:16 | NUR ---
PER HOUSE STAFF INSULIN DRIP WILL CONTINUE TO INFUSE AT 5UNITS/HR
--- NOTE | 2016-09-24 06:32 | NUR ---
PT ASLEEP AT THIS TIME W/RR NOTED, BILATERAL AND EQUAL CHEST RISE AND FALL. PT REMAINS ON 3L NC O2 SAT 98%. WILL CONTINUE TO MONITOR.
--- NOTE | 2016-09-24 06:46 | NUR ---
PER HOUSE STAFF INSULIN DRIP WILL BE INCREASED TO 8UNITS/HR. PT DIET ALSO CHANGED FROM CLEAR LIQUID TO SOFT DIET, DIETARY MADE AWARE
--- NOTE | 2016-09-24 06:54 | NUR ---
ATTEMPTED TO CALL REPORT TO ICU, TOLD NURSE WOULD CALL BACK IN 5 MINUTES
--- NOTE | 2016-09-24 07:17 | NUR ---
REPORT GIVEN TO ALEX BERNABE
--- NOTE | 2016-09-24 07:31 | NUR ---
REPORT RECEIVED. ACCUCHECK 487.
--- NOTE | 2016-09-24 07:38 | NUR ---
NIKITA [facility] INSULIN DRIP INCREASED TO 10 U/HR ORDERED BY DR SANCHEZ.
--- NOTE | 2016-09-24 07:51 | NUR ---
BREAKFAST GIVEN,TAKEN WELL.
--- NOTE | 2016-09-24 07:53 | NUR ---
LABS DRAWN AND SENT BY THIS MST BLUE, SST, LAV, ALFARO
--- NOTE | 2016-09-24 08:00 | NUR ---
PT ADMITTED FROM ER WITH HHS. PT IS A/OX3. O2 SAT 97% ON 3LNC. INSULIN GTT REMAINS RUNNING AT 10 UNITS/HR. GLUCOSE 430. NSR ON THE MONITOR.
--- NOTE | 2016-09-24 08:08 | Cons- CRCU ---
General Information and HPI Allergies/Medications Allergies: Coded Allergies: No Known Allergies (11/20/15) Home Med List: Albuterol Sulfate (Ventolin Hfa) 90 MCG HFA.AER.AD 2 PUF INH PRN RESPIRATORY (Reported) Albuterol Sulfate 2.5 MG/3 ML (0.083 %) VIAL.NEB 1 Vial INH/LEMUEL PRN RESPIRATORY (Reported) Fenofibrate 160 MG TABLET 1 TAB PO DAILY CHOLESTEROL/TRIGLYCERIDES (Reported) Gabapentin 100 MG CAPSULE 1 CAP PO TID NERVE PAIN (Reported) Gemfibrozil 600 MG TABLET 1 TAB PO BID CHOLESTEROL (Reported) Insulin Aspart, Recombinant (Novolog Flexpen) 100 UNIT/ML INSULN.PEN 20 UNITS SC TIDAC/HS DM (Reported) Insulin-Lantus (Lantus) 100 UNIT/1 ML VIAL 40 UNITS SC BID DIABETES (Reported ) Ketorolac Tromethamine (Acular) 0.5 % DROPS 1 GTT OD DAILY RIGHT EYE ( Reported) Lansoprazole 30 MG CAPSULE.DR 1 CAP PO DAILY GI (Reported) Levofloxacin (Levaquin) 500 MG TABLET 1 TAB PO DAILY ANTIBIOTIC (Reported) Metformin HCl 500 MG TABLET 1 TAB PO BID DIABETES (Reported) Paroxetine HCl 20 MG TABLET 1 TAB PO DAILY MENTAL HEALTH (Reported) Quetiapine Fumarate 100 MG TABLET 1 TAB PO QPM DEPRESSION (Reported) Tizanidine HCl 2 MG TABLET 1 TAB PO BID MUSCLE RELAXER (Reported) Tobramycin 0.3 % DROPS 1 GTT OD DAILY RIGHT EYE (Reported) Past History Travel History Traveled to [place] past 21 day No Medical History Neurological: NONE EENT: NONE Cardiovascular: NONE Respiratory: PNA Gastrointestinal: pancreatitis Hepatic: HEPATITIS Renal: NONE Musculoskeletal: NONE Psychiatric: NONE Endocrine: diabetes Blood Disorders: NONE Cancer(s): NONE 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 Ambulation: independent IADLs Independent: shopping, housework, finances, food prep, telephone, transportation , medication admin. Assessment/Plan Consult Acknowledgment - Thank you for your consult request.
[2016-09-24 08:33] LABS: HEMATOCRIT 33.6 % (37-47); MEAN CORPUSCULAR HGB 28.8 PG (27.0-31.0); MEAN CORPUSCULAR HGB CONC 33.7 G/DL (33.0-37.0); MEAN CORPUSCULAR VOLUME 85.5 FL (81.0-99.0); MEAN PLATELET VOLUME 9.8 FL (7.4-10.4); PLATELET COUNT 293 /CUMM (130-400); RBC DISTRIBUTION WIDTH 15.4 % (11.5-14.5); RED BLOOD CELL CT 3.94 /CUMM (4.20-5.40); WHITE BLOOD CELL COUNT 14.5 /CUMM (4.8-10.8)
--- NOTE | 2016-09-24 10:09 | Cons- Endocrinology ---
See Addendum General Information and HPI Consulting Request Date of Consult: 09/24/16 Requested By: ICU team Reason for Consult: management of DM type 2/ HHS/dyslipidemia Source of Information: patient, old records Exam Limitations: no limitations History of Present Illness: 46-year-old female, [place], with past medical history significant for diabetes typ2, approximately 10 episodes of pancreatitis due to significantly elevated triglyceride with the highest level of over 60,000 required plasmapheresis 3 years ago,who comes in for chief complaint of malaise, cough, rib pain and shortness of breath. On September 15 she started feeling poor and she was diagnosed with pneumonia and Levaquin was prescribed. She was on Lantus 40 units twice a day and Novolog 20 units before meals. But she didn't take insulin the day prio to admission because she went to [place] to visit her mother and forget taking the insulin with her. As outpatient, she was on Atorvastatin 80 mg daily and fenofibrate. In addition, she received one injection for her cholesterol 2 months ago in her television engineering teacher' s office. Detail is not clear at this point. Her twin sister has had hx of dyslipidemia as well. In ER, her glucose was 886, Cr 0.8, sodium 124, K 4.5, osmolality 329, HbA1c is still pending, amylase 35, lipase 42, chol 588, TRIG 3046, HDL 47 and direct LDL < 60. Currently she is on isulin drip 10 units per hour; her most recent FSG 465, 430 and 384. Allergies/Medications Allergies: Coded Allergies: No Known Allergies (11/20/15) Home Med List: Albuterol Sulfate (Ventolin Hfa) 90 MCG HFA.AER.AD 2 PUF INH PRN RESPIRATORY (Reported) Albuterol Sulfate 2.5 MG/3 ML (0.083 %) VIAL.NEB 1 Vial INH/LEMUEL PRN RESPIRATORY (Reported) Fenofibrate 160 MG TABLET 1 TAB PO DAILY CHOLESTEROL/TRIGLYCERIDES (Reported) Gabapentin 100 MG CAPSULE 1 CAP PO TID NERVE PAIN (Reported) Gemfibrozil 600 MG TABLET 1 TAB PO BID CHOLESTEROL (Reported) Insulin Aspart, Recombinant (Novolog Flexpen) 100 UNIT/ML INSULN.PEN 20 UNITS SC TIDAC/HS DM (Reported) Insulin-Lantus (Lantus) 100 UNIT/1 ML VIAL 40 UNITS SC BID DIABETES (Reported ) Ketorolac Tromethamine (Acular) 0.5 % DROPS 1 GTT OD DAILY RIGHT EYE ( Reported) Lansoprazole 30 MG CAPSULE.DR 1 CAP PO DAILY GI (Reported) Levofloxacin (Levaquin) 500 MG TABLET 1 TAB PO DAILY ANTIBIOTIC (Reported) Metformin HCl 500 MG TABLET 1 TAB PO BID DIABETES (Reported) Paroxetine HCl 20 MG TABLET 1 TAB PO DAILY MENTAL HEALTH (Reported) Quetiapine Fumarate 100 MG TABLET 1 TAB PO QPM DEPRESSION (Reported) Tizanidine HCl 2 MG TABLET 1 TAB PO BID MUSCLE RELAXER (Reported) Tobramycin 0.3 % DROPS 1 GTT OD DAILY RIGHT EYE (Reported) Review of Systems Review of Systems Constitutional: Reports: see HPI, malaise. Cardiovascular: Denies: chest pain (related to cough). Respiratory: Reports: cough, short of breath. GI: Reports: abdominal pain (related to cough). Musculoskeletal: Reports: no symptoms. Hematologic/Endocrine: Denies: polyuria, polydipsia. 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 Ambulation: independent IADLs Independent: shopping, housework, finances, food prep, telephone, transportation , medication admin. Exam & Diagnostic Data Last 24 Hrs of Vital Signs/I&O Vital Signs Date Time Temp Pulse Resp B/P B/P Pulse O2 O2 Flow FiO2 Mean Ox Delivery Rate 09/24 0907 Nasal 3.0L Cannula 09/24 0851 97 Nasal 3.0L Cannula 09/24 0744 96.3 105 18 115/59 96 Nasal 3.0L Cannula 09/24 0642 97.3 102 18 109/61 99 Nasal 3.0L Cannula 09/24 0517 97.8 100 24 102/59 95 Nasal 3.0L Cannula 09/24 0319 97.7 105 25 109/74 94 Nasal 3.0L Cannula 09/24 0147 99 Nasal 2.0L Cannula 09/24 0131 97.4 99 24 120/96 95 Nasal 3.0L Cannula 09/23 2257 96 Nasal 2.5L Cannula 09/23 2241 98.2 687 53 1229/63 99 Nasal 2.0L Cannula 09/23 2141 99.4 104 26 129/75 96 Nasal 1.0L Cannula 09/23 2038 97 Nasal 1.0L Cannula 09/23 2016 98 Nasal 2.0L Cannula 09/23 1948 99.1 106 18 124/84 90 Room Air Intake & Output 09/24 1600 09/24 0800 09/24 0000 Intake Total 220 2000 Output Total Balance 220 2000 Intake, IV 2000 Intake, Oral 220 Patient 130 lb Weight Weight Reported by Patient Measurement Method Physical Exam General Appearance: no apparent distress Neck: normal inspection Respiratory: crackles (right lung) Cardiovascular: regular rate/rhythm Gastrointestinal: soft (midsection overweight) Extremities: normal inspection, no edema Assessment/Plan Assessment/Plan 46-year-old female, [place], with past medical history significant for diabetes typ2, approximately 10 episodes of pancreatitis due to significantly elevated triglyceride with the highest level of over 60,000 required plasmapheresis 3 years ago,who comes in for chief complaint of malaise, cough, rib pain and shortness of breath. She was admitted for pneumonia, hyperosmolar hyperglycemic state and significant dyslipidemia. 1. DM: --- continue the current insulin drip for now; --- monitor FSGs every one hour; ---adjust insulin drip rate according to decrease glucose level by 50-100 mg/dl/ hour ---once her glucose level is less than 200, please contact me and I will switch her insulin regimen to an insulin sc regimen. ---recommend changing IVF to NS at 150 ml/hour for now; --- monitor electrolytes later today; ---adjust diet to consistent carbohydrstes diet with 3-4 servings of carbohydrates per meal; ---low fat diet. 2. ? familial hypertriglyceridemia ---recommend atorvastatin 80 mg daily and fenofibrate 145 mg daily; ---insulin therapy to control hyperglycemia; ---check TFT and uric acid level; ---low fat diet; ---monitor lipid panel, CPK and LFT tomorrow. will follow. Consult Acknowledgment - Thank you for your consult request.
--- NOTE | 2016-09-24 11:34 | PN- CRCU ---
Subjective HPI/Critical Care Issues: 46-year-old female, [place], with past medical history significant for diabetes typ2, approximately 10 episodes of pancreatitis due to significantly elevated triglyceride with the highest level of over 60,000 required plasmapheresis 3 years ago,who comes in for chief complaint of malaise, cough, rib pain and shortness of breath. On September 15 she started feeling poor and she was diagnosed with pneumonia and Levaquin was prescribed. She was on Lantus 40 units twice a day and Novolog 20 units before meals. But she didn't take insulin the day prio to admission because she went to [place] to visit her mother and forget taking the insulin with her. As outpatient, she was on Atorvastatin 80 mg daily and fenofibrate. In addition, she received one injection for her cholesterol 2 months ago in her surgical lead' s office. Detail is not clear at this point. Her twin sister has had hx of dyslipidemia as well. In ER, her glucose was 886, Cr 0.8, sodium 124, K 4.5, osmolality 329, HbA1c is still pending, amylase 35, lipase 42, chol 588, TRIG 3046, HDL 47 and direct LDL < 60. Currently she is on isulin drip 10 units per hour; her most recent FSG 465, 430 and 384 THis am she was sleeping comfortably Objective Current Medications: Current Medications Sig/Samara Start time Last Medication Dose Route Stop Time Status Admin Acetaminophen 650 MG Q6P PRN 09/24 0300 AC PO Albuterol Sulfate 2 PUF Q4-6 PRN PRN 09/24 1000 AC INH Albuterol Sulfate 3 ML EVERY 4 HRS/AWAKE 09/24 0845 AC 09/24 INH 0837 Albuterol Sulfate 18 ML ONCE ONE 09/24 0145 DC 09/24 INH 09/24 0146 0150 Albuterol Sulfate 3 ML ONCE ONE 09/23 2300 DC 09/23 INH 09/23 2301 2255 Albuterol Sulfate 3 ML ONCE ONE 09/23 2014 DC 09/23 INH 09/23 Atorvastatin Calcium 80 MG 1700 09/24 1700 AC PO Azithromycin 500 MG 09/24 AC Sodium Chloride 250 ML IV Azithromycin 500 MG ONCE ONE 09/23 2129 DC 09/23 Sodium Chloride 250 ML IV 09/23 Ceftriaxone Sodium 1,000 MG 2200 06/04 2200 AC IV Ceftriaxone Sodium 0 .STK-MED ONE 09/23 2152 DC .ROUTE Ceftriaxone Sodium 1,000 MG ONCE ONE 09/23 2130 DC 09/23 IV 09/23 2131 2201 Fenofibrate 145 MG DAILY 09/24 1043 AC PO Gemfibrozil 600 MG BID 09/24 1000 DC 09/24 PO 0856 Heparin Sodium 0 .STK-MED ONE 09/24 0609 DC (Porcine) .ROUTE Heparin Sodium 5,000 UNIT Q8 09/24 0600 AC 09/24 (Porcine) SC 0612 Insulin Human Regular 100 UNIT Q24H 09/24 0400 AC 09/24 Sodium Chloride 100 ML IV 0420 Insulin Human Regular 100 UNIT Q24H 09/23 2200 DC 09/23 Sodium Chloride 100 ML IV 2215 Insulin Human Regular 10 UNITS ONCE ONE 09/23 2200 DC 09/23 IV 09/23 2201 2215 Ipratropium [place] 2.5 ML EVERY 4 HRS/AWAKE 09/24 0845 AC 09/24 INH 0837 Ipratropium [place] 2.5 ML ONCE ONE 09/23 2300 DC 09/23 INH 09/23 2301 2255 Ipratropium [place] 2.5 ML ONCE ONE 09/23 2014 DC 09/23 INH 09/23 Ketorolac 0 .STK-MED ONE 09/23 2025 DC Tromethamine .ROUTE Ketorolac 0 .STK-MED ONE 09/23 2017 DC Tromethamine .ROUTE Ketorolac 30 MG ONCE ONE 09/23 2014 DC 09/23 Tromethamine IV 09/24 2015 2144 Methylprednisolone 0 .STK-MED ONE 09/23 2026 DC .ROUTE Methylprednisolone 0 .STK-MED ONE 09/23 2025 DC .ROUTE Methylprednisolone 125 MG ONCE ONE 09/23 2014 DC /03 IV 09/24 2015 2144 Morphine Sulfate 0 .STK-MED ONE 09/24 0610 DC .ROUTE Morphine Sulfate 2 MG Q4 PRN 09/24 0315 AC 09/24 IV 0612 Morphine Sulfate 0 .STK-MED ONE 09/24 0201 DC .ROUTE Morphine Sulfate 4 MG ONCE ONE 09/24 0200 DC 09/24 IV 09/24 0201 0200 Morphine Sulfate 0 .STK-MED ONE 09/23 2251 DC .ROUTE Morphine Sulfate 4 MG ONCE ONE 09/23 2245 DC 09/23 IV 09/23 2246 2249 Omeprazole 40 MG DAILY AC 09/24 0700 CAN PO Oxycodone HCl 5 MG Q6P PRN 09/24 0315 AC 09/24 PO 0856 Pantoprazole Sodium 40 MG DAILY 09/24 1000 AC 09/24 IV 0858 Paroxetine HCl 20 MG DAILY 09/24 1000 AC 09/24 PO 0857 Potassium Chloride 20 MEQ Q6H 09/24 0715 DC 09/24 Sodium Chloride 1,000 ML IV 0859 Quetiapine Fumarate 100 MG QPM 09/24 2200 AC PO Sodium Chloride 1,000 ML .Q6H40M 09/24 1045 AC IV Sodium Chloride 1,000 ML Q10H 09/24 1015 DC IV Sodium Chloride 1,000 ML Q6H 09/24 0345 DC 09/24 IV 0351 Sodium Chloride 1,000 ML BOLUS ONE 09/23 2245 DC / IV 09/23 2344 2302 Sodium Chloride 1,000 ML BOLUS ONE 09/23 2200 DC 09/23 IV 09/23 2259 2203 Sodium Chloride 1,000 ML BOLUS ONE 09/23 2200 DC 09/23 IV 09/23 2259 2239 Tizanidine HCl 2 MG BID 09/24 1000 AC 09/24 PO 0858 Vital Signs & I&O Last 24 Hrs of Vitals and I&O: Vital Signs Date Time Temp Pulse Resp B/P B/P Pulse O2 O2 Flow FiO2 Mean Ox Delivery Rate 09/24 0907 Nasal 3.0L Cannula 09/24 0851 97 Nasal 3.0L Cannula 09/24 0744 96.3 105 18 115/59 96 Nasal 3.0L Cannula 09/24 0642 97.3 102 18 109/61 99 Nasal 3.0L Cannula 09/24 0517 97.8 100 24 102/59 95 Nasal 3.0L Cannula 09/24 0319 97.7 105 25 109/74 94 Nasal 3.0L Cannula 09/24 0147 99 Nasal 2.0L Cannula 09/24 0131 97.4 99 24 120/96 95 Nasal 3.0L Cannula 09/23 2257 96 Nasal 2.5L Cannula 09/23 224 98.2 437 36 3828/63 99 Nasal 2.0L Cannula 09/23 214 99.4 104 26 129/75 96 Nasal 1.0L Cannula 09/23 2038 97 Nasal 1.0L Cannula 09/23 2016 98 Nasal 2.0L Cannula 09/24 1947 99.1 106 18 124/84 90 Room Air Intake & Output 09/24 1600 09/24 0800 09/24 0000 Intake Total 220 2000 Output Total Balance 220 2000 Intake, IV 2000 Intake, Oral 220 Patient 130 lb Weight Weight Reported by Patient Measurement Method Laboratory Tests 09/24 09/24 09/24 0751 0352 0300 Chemistry Sodium (137 - 145 mmol/L) 136 L 134 L Potassium (3.5 - 5.1 mmol/L) 4.1 4.0 Chloride (98 - 107 mmol/L) 106 105 Carbon Dioxide (22 - 30 mmol/L) 16 L 17 L Anion Gap (5 - 16) 14 12 BUN (7 - 17 mg/dL) 26 H 24 H Creatinine (0.5 - 1.0 mg/dL) 0.6 0.6 Estimated GFR (>60 ml/min) > 60 > 60 BUN/Creatinine Ratio (7 - 25 %) 43.3 H 40.0 H Glucose (65 - 99 mg/dL) 455 H 418 H Lactic Acid (0.7 - 2.1 mmol/L) 2.2 H 2.1 Uric Acid (2.5 - 6.2 mg/dL) 5.4 Calcium (8.4 - 10.2 mg/dL) 8.6 8.3 L Phosphorus (2.5 - 4.5 mg/dL) 3.7 Magnesium (1.6 - 2.3 mg/dL) 2.0 Triglycerides (<150 mg/dL) 3046 H Cholesterol (<200 MG/DL) 588 H LDL Cholesterol Direct (<100 mg/dL) < 60.00 LDL Cholesterol, Calc (65 - 129 mg/dL) ND HDL Cholesterol (40 - 60 mg/dL) 47 Cholesterol/HDL Ratio (0.00 - 4.23 %) 12.5 H TSH (0.270 - 4.200 uIU/mL) Pending Free T4 (0.64 - 1.79 ng/dL) Pending Total T3 (0.97 - 1.69 ng/mL) Pending Hematology CBC w Diff MAN DIFF ORDERED WBC (4.8 - 10.8 /CUMM) 14.5 H RBC (4.20 - 5.40 /CUMM) 3.94 L Hgb (12.0 - 16.0 G/DL) 11.3 L Hct (37 - 47 %) 33.6 L MCV (81.0 - 99.0 FL) 85.5 MCH (27.0 - 31.0 PG) 28.8 RDW (11.5 - 14.5 %) 15.4 H Plt Count (130 - 400 /CUMM) 293 MPV (7.4 - 10.4 FL) 9.8 Segmented Neutrophils (42.2 - 75.2 %) 78 H Band Neutrophils (0.0 - 5.0 %) 8 H Lymphocytes (20.5 - 51.1 %) 10 L Monocytes (1.7 - 9.3 %) 2 Eosinophils (0 - 5.0 %) 1 Metamyelocytes (0.0 - 1.0 %) 1 Platelet Estimate (ADEQUATE) ADEQUATE Normocytic RBCs VERIFIED Normochromic RBCs VERIFIED PUBS MCHC (33.0 - 37.0 G/DL) 33.7 06/ 06/03 / 0018 2233 2133 Blood Gas Bicarbonate Actual (22 - 26 MEQ/L) 22 Mixed VBG pH (7.31 - 7.41 PH) 7.38 Mixed VBG pCO2 (41 - 51 TORR) 39 L Mixed VBG O2 Saturation (35 - 45 TORR) 49 H P-50 (Temp Corrected) N Carboxyhemoglobin (1.5 - 5.0 %) 0.9 L O2 Concentration % 1L Temperature (97.0 - 100.0 FARH) 99.6 O2 Delivery Method NC Chemistry Total Beta HCG Cancelled Miscellaneous Phlebotomy Draw Site VENOUS Toxicology Urine Opiates Screen (>2000 NG/ML) 153.00 Methadone Screen (>300 NG/ML) 59 Barbiturate Screen (>200 NG/ML) < 60 Ur Phencyclidine Scrn (>25 NG/ML) < 6.00 Amphetamines Screen (>1000 NG/ML) < 100 U Benzodiazepines Scrn (>200 NG/ML) < 85 Urine Cocaine Screen (>300 NG/ML) < 50 Urine Cannabis Screen (>50 NG/ML) < 5.00 Urines Urine Color (YEL,AMB,STR) STRAW Urine Clarity (CLEAR) CLEAR Urine pH (5.0 - 8.0) 6.0 Ur Specific [place] (1.001 - 1.035) <= 1.005 Urine Protein (NEG,<30 MG/DL) NEG Urine Ketones (NEG) NEG Urine Nitrite (NEG) NEG Urine Bilirubin (NEG) NEG Urine Urobilinogen (0.1 - 1.0 EU/dl) 0.2 Ur Leukocyte Esterase (NEG) NEG Ur Microscopic EXAM NOT REQUIRED Urine Hemoglobin (NEG) NEG Urine Glucose (N MG/DL) >=1000 H 09/23 204 Chemistry Sodium (137 - 145 mmol/L) 124 L Potassium (3.5 - 5.1 mmol/L) 4.5 Chloride (98 - 107 mmol/L) 91 L Carbon Dioxide (22 - 30 mmol/L) 18 L Anion Gap (5 - 16) 14 BUN (7 - 17 mg/dL) 18 H Creatinine (0.5 - 1.0 mg/dL) 0.8 Estimated GFR (>60 ml/min) > 60 BUN/Creatinine Ratio (7 - 25 %) 22.5 Glucose (65 - 99 mg/dL) 886 *H Hemoglobin A1c (4.2 - 5.8 %) Pending Serum Osmolality (285 - 295 MOSM/KG) 329 H Lactic Acid (0.7 - 2.1 mmol/L) 4.0 H Calcium (8.4 - 10.2 mg/dL) 8.7 Magnesium (1.6 - 2.3 mg/dL) 1.9 Total Bilirubin (0.2 - 1.3 mg/dL) 0.6 AST (14 - 36 U/L) 21 ALT (9 - 52 U/L) 28 Alkaline Phosphatase (<127 U/L) 145 H Total Protein (6.3 - 8.2 g/dL) 6.4 Albumin (3.5 - 5.0 g/dL) 3.4 L Globulin (1.9 - 4.2 gm/dL) 3.0 Albumin/Globulin Ratio (1.1 - 2.2 %) 1.1 Amylase (30 - 110 U/L) 35 Lipase (23 - 300 U/L) 42 Total Beta HCG (NEGATIVE) NEGATIVE Hematology CBC w Diff MAN DIFF ORDERED WBC (4.8 - 10.8 /CUMM) 13.4 H RBC (4.20 - 5.40 /CUMM) 3.92 L Hgb (12.0 - 16.0 G/DL) 11.4 L Hct (37 - 47 %) 33.6 L MCV (81.0 - 99.0 FL) 85.5 MCH (27.0 - 31.0 PG) 29.1 RDW (11.5 - 14.5 %) 14.8 H Plt Count (130 - 400 /CUMM) 293 MPV (7.4 - 10.4 FL) 9.5 Segmented Neutrophils (42.2 - 75.2 %) 85 H Band Neutrophils (0.0 - 5.0 %) 1 Lymphocytes (20.5 - 51.1 %) 13 L Monocytes (1.7 - 9.3 %) 1 L Platelet Estimate (ADEQUATE) ADEQUATE Normocytic RBCs VERIFIED Normochromic RBCs VERIFIED PUBS MCHC (33.0 - 37.0 G/DL) 34.1 Other Body Source Fld Total RBCs Counted (%) 100 Toxicology Acetone Level (NEGATIVE) NEGATIVE Microbiology Date/Time Procedure - Status Source Growth 09/24 1050 Urine Culture - ORD URINE ROUT 09/24 0616 Legionella Antigen - ORD URINE ROUT 09/24 0453 Respiratory Culture - COLB LOWER RESP 09/24 0453 Gram Stain - COLB LOWER RESP 09/23 2115 Blood Culture - RECD BLOOD 09/23 2040 Blood Culture - RECD BLOOD Impression/Plan Impression/Plan Impression/Plan: 46-year-old female, [place], with past medical history significant for diabetes typ2, approximately 10 episodes of pancreatitis due to significantly elevated triglyceride with the highest level of over 60,000 required plasmapheresis 3 years ago,who comes in with SIg DM with Hyperosmolar state Familial hypertriglyceredemia with sig elevated triglycerides Bilateral pulm infiltrates prob CAP vs other inflammatory lung disease REC COnt INSulin an ivf per endo cont statin and fenofibrate Cont abx Await cultures Rpt cxr and labs in am including cpk and lft CHeck esr, crp, pedro luis, ANCA panel, Rheumatoid panel CPK and sjogren antibody panel PO ppi Keep hob up Start flovent 220m mcg 2 puff bid IF she is coughing can start spiriva one puff daily Start mucinex po bid WIll follow closely
--- NOTE | 2016-09-24 13:00 | NUR ---
PT C/O 09/30 B/L "RIB PAIN." DR CHEN AND DR WILSON AWARE. IV TYLENOL ORDERED AND GIVEN.
--- NOTE | 2016-09-24 16:00 | NUR ---
ASSUMED CARE OF PATIENT, PATIENT ALERT AND ORIENTED, GEORGIAN SPEAKING BUT MANAGES COMMUNICATION IN [place]ORUBA WELL. MICHAEL MOVES ALL EXTREMITIES, ASSIST OF ONE TO BR TO VOID. MONITOR NSR WITHOUT ECTOPY. LUNGS WITH SCATTERED RHONCHI AND WHEEZES PATIENT C/O SEVERE PAIN TO L AND R LOWER RIB CAGE WHEN COUGHING SEVERE AT TIMES. ABD SOFT NON TENDER WITH NO NAUSEA OR VOMITING, TAKING PO WELL. VOIDING WELL, IV'S INTACT AND INFUSING WELL. SKIN INTACT, NO EDEMA.
[2016-09-24 21:00] VITALS: BP 140/80
--- NOTE | 2016-09-24 22:16 | RADIOLOGY REPORT ---
EXAMINATION: XR PORTABLE CHEST CLINICAL INFORMATION: Worsening shortness of breath COMPARISON: 09/23/2016 chest x-ray TECHNIQUE: Portable frontal view of the chest was obtained. FINDINGS: Normal cardiomediastinal silhouette. Interval worsening of bilateral patchy pulmonary opacities. No pleural effusions or pneumothorax. IMPRESSION: Interval worsening of bilateral pulmonary opacities which could represent worsening pneumonia. Possibility of developing noncardiogenic pulmonary edema also to be considered and clinically evaluated.
[2016-09-25] VITALS: BP 92/70
--- NOTE | 2016-09-25 02:48 | NUR ---
09/24/16 2330 PATIENT RECEIVED TACHYPNIC AT REST, RR 36 TO 40/MIN, CONTINUOUS O2 SAT 95% ON HIGH FLOW NC AT 50%, BREATHE SOUNDS WITH CRACKLES AT RIGHT BASE, SKIN PINK, WARM AND DRY, ABDOMEN SOFT, +BS, PATIENT DROWSY AFTER EARLIER PAIN MED DOSE, INSPECTOR OF DREDGING SINUS TO SINUS TACHYCARDIA WITH HEART RATE HIGH 90'S TO 100'S/MIN, JOHN MONROE AND CHRISTOPHER AT BEDSIDE- PLAN OF CARE EXPLAINED TO PATIENT, ARRIAZA CATHETER INSERTED WITHOUT DIFFICULTY- 150 ML CLEAR JUDITH UO OBTAINED, IV FLUIDS STOPPED PER MD'S, BP 90/SYSTOLIC 0015 NARCAN 0.2 MG GIVEN IV ORDERED WITH MODERATE EFFECT ON WAKEFULNESS SOLUMEDROL DOSE GIVEN ORDERED 0030 BP MAINTAINED 90/SYSTOLIC, ABG'S DRAWN BY RT 0100 NARCAN 0.4 MG DOSE GIVEN IV WITH INCREASED WAKEFULNESS 0115 LASIX DOSE GIVEN SLOWLY IV, PATIENT PLACED ON BIPAP WITH FIO2 40%, 14/6, RR 20 BY RT, PATIENT INSTRUCTED NOT TO EAT OR DRINK WITH BIPAP IN USE, TO CALL RN 0145 GOOD URINARY DIURESIS AFTER LASIX DOSE, PATIENT REMAINS AROUSABLE WITH STIMULI, TOLERATING BIPAP WELL, RR NOW HIGH 20'S TO 30/MIN
--- NOTE | 2016-09-25 03:25 | Event Note ---
Event Note Event Note: Pt was having gradually increasing O2 requirement. Went from 2-->4-->6L NC since admission. Then switched to high-flow O2. I was informed that despite hi-flow she was tachypneic up to 35 and satting 94%. BP max systolic of 92 on manual. A Stat CXR showed worsening infiltrates and possible non-cardiogenic pulm edema. Pt's lungs sound worse with wheezes, crackles and rhonchi. In addition she was lethargic. Did ABG, gave .2 Narcan. After Narcan saw some improvement in BP and in mental status. Another .4 Narcan given. Inital Pao2/Fio2 was 211 concern for ARDS. Pt placed on Bipap for work of breathing. Given 20mg of IV lasix once her BP went up to 100 systolic. Showing improvement. Plan discussed with resident and attending.
[2016-09-25 05:31] LABS: PLATELET COUNT 268 /CUMM (130-400); WHITE BLOOD CELL COUNT 15.9 /CUMM (4.8-10.8)
[2016-09-25 05:41] LABS: HEMATOCRIT 30.3 % (37-47); MEAN CORPUSCULAR HGB 28.5 PG (27.0-31.0); MEAN CORPUSCULAR HGB CONC 33.2 G/DL (33.0-37.0); MEAN CORPUSCULAR VOLUME 85.8 FL (81.0-99.0); MEAN PLATELET VOLUME 9.6 FL (7.4-10.4); RBC DISTRIBUTION WIDTH 15.7 % (11.5-14.5); RED BLOOD CELL CT 3.53 /CUMM (4.20-5.40)
--- NOTE | 2016-09-25 06:45 | NUR ---
PATIENT SLEEPING, EASILY AROUSABLE BUT RETURNS TO SLEEP SOON STIMULI CEASES- CAROLYN FONSECA AND CHRISTOPHER MADE AWARE OF CONTINUED DROWSINESS, DRS ALSO MADE AWARE OF AM BS 329- NO CHANGES IN ORDERS GIVEN AT THIS TIME, PATIENT CONTINUES TO TOLERATE BIPAP WELL- O2 SAT 98 TO 100%, RR LOW 20'S/MIN, PORTABLE CXR DONE, AWAITING AM MD ROUNDS
--- NOTE | 2016-09-25 06:55 | PN- Resident CRCU ---
Subjective HPI/CRCU Issues: Patient seen and examined at bedside this AM. She is on BiPAP saturating 100% and is comfortable. She was noted to be in respiratory distress yesterday with tachypnea and low O2 saturations. She was initially transitioned to HFNC from NC and then placed on BiPAP with good response. She was also given 20 mg IV lasix and a 1 time dose of 125 IV solumedrol in addition to IV narcan. Patient continues to endorse bilateral rib pain, though this is slightly improved from yesterday. 24 Hour Events: property assessment monitor: No events. Vital signs last 24 hours: T 96.7-98.3, HR 83-120, RR 20-38, BP 90-133/61-81, O2 sat 92-100% on 2 L NC--> HFNC--> BiPAP. Total intake last 24 hours: 4211 cc Total output: 1775 cc Objective Vital Signs & I&O Last 8 Hrs of Vitals and I&O: T 96.7-98.3, HR 83-120, RR 20-38, BP 90-133/61-81, O2 sat 92-100% on 2 L NC--> HFNC--> BiPAP. Exam General Appearance: well developed/nourished, no apparent distress, alert, awake , comfortable Head: atraumatic, normal appearance Ears, Nose, Throat: normal pharynx, hearing grossly normal Neck: normal inspection, full range of motion Respiratory: Occasional wheeze, slightly tachypneic, occasional basal rhonchi Cardiovascular: regular rate/rhythm Gastrointestinal: normal bowel sounds, soft, Slightly distended, generalized tenderness Extremities: normal inspection, no edema Cranial Nerves: normal hearing, normal speech, PERRL Skin: intact, normal color, warm/dry Nutrition Nutrition: P.O. diet Current Medications: Current Medications Sig/Samara Start time Last Medication Dose Route Stop Time Status Admin Acetaminophen 1,000 MG ONCE ONE 09/24 1115 DC 09/24 N/A 1 UNIT IV 09/24 1129 1252 Acetaminophen 650 MG Q6P PRN 09/24 0300 AC PO Albuterol Sulfate 2 PUF Q4-6 PRN PRN 09/24 1000 AC INH Albuterol Sulfate 3 ML EVERY 4 HRS/AWAKE 09/24 0845 AC 09/24 INH 2101 Atorvastatin Calcium 80 MG 1700 06/04 1700 AC 06/04 PO 1714 Azithromycin 500 MG 2200 09/24 2200 AC 09/24 Sodium Chloride 250 ML IV 2224 Ceftriaxone Sodium 1,000 MG 2200 09/24 2200 AC / IV 2224 Fenofibrate 145 MG DAILY /04 1043 AC 06/04 PO 1253 Fluticasone 4 PUF BID 09/24 2200 AC 04 Propionate INH 2226 Furosemide 20 MG ONCE ONE 09/25 0115 DC 09/25 IV 09/25 0116 0113 Furosemide 40 MG ONCE ONE 09/24 2345 CAN IV 09/24 2346 Gemfibrozil 600 MG BID 09/24 1000 DC 09/24 PO 0856 Guaifenesin 600 MG Q12 09/24 2200 AC 09/24 PO 2225 Heparin Sodium 5,000 UNIT Q8 09/24 0600 AC 09/25 (Porcine) SC 0611 Insulin Aspart 0 AT BEDTIME 09/24 2200 AC 09/24 SC 2200 Insulin Aspart 0 TIDAC 09/24 1700 r 09/25 SC 0806 Insulin Detemir 50 UNITS BID 09/25 1000 AC SC Insulin Detemir 50 UNITS ONCE ONE 09/24 1700 DC 09/24 SC /04 1701 1714 Insulin Human Regular 100 UNIT Q24H 09/24 0400 DC 09/24 Sodium Chloride 100 ML IV 0420 Ipratropium Dundas 2.5 ML EVERY 4 HRS/AWAKE 04 0845 AC 06/04 INH 2101 Ketorolac 30 MG ONCE ONE 09/24 1445 DC 09/24 Tromethamine IV 09/24 1446 1448 Methylprednisolone 125 MG ONCE ONE 09/25 0015 DC 09/25 IV 09/25 0016 0012 Morphine Sulfate 2 MG Q6-PRN PRN 09/24 2345 AC IV Morphine Sulfate 1 MG ONCE ONE 09/24 2045 DC / IV 09/24 2046 2049 Morphine Sulfate 2 MG ONCE ONE 09/24 1515 DC 09/24 IV 09/24 1516 1534 Morphine Sulfate 2 MG Q4 PRN 09/24 0315 DC 09/24 IV 2328 Naloxone HCl 0.4 MG ONCE ONE 09/25 0100 DC 09/25 IV 09/25 0101 0104 Naloxone HCl 0.2 MG ONCE ONE 09/25 0015 DC 09/25 IV 09/25 0016 0009 Omeprazole 40 MG DAILY AC 09/25 0700 AC 09/25 PO 0612 Oxycodone HCl 5 MG Q6P PRN 09/24 0315 AC 09/24 PO 0856 Pantoprazole Sodium 40 MG DAILY 09/24 1000 DC / IV 0858 Paroxetine HCl 20 MG DAILY 09/24 1000 AC 09/24 PO 0857 Potassium Chloride 20 MEQ ONCE ONE 09/24 1845 DC /04 PO 09/24 1846 2030 Potassium Chloride 20 MEQ Q6H 09/24 0715 DC 09/24 Sodium Chloride 1,000 ML IV 0859 Quetiapine Fumarate 100 MG QPM 09/24 2200 AC 09/24 PO 2225 Sodium Chloride 1,000 ML .Q10H 09/24 1045 DC 06 IV 2031 Sodium Chloride 1,000 ML Q10H 09/24 1015 DC IV Tiotropium Dundas 1 PUF DAILY 09/25 1000 AC INH Tizanidine HCl 2 MG BID 09/24 1000 AC 09/24 PO 2224 Tramadol HCl 50 MG Q6 09/24 2044 AC 09/24 PO 204 CXR Findings: IMPRESSION: Interval worsening of bilateral pulmonary opacities which could represent worsening pneumonia. Possibility of developing noncardiogenic pulmonary edema also to be considered and clinically evaluated. Impression/Plan Impression/Problem List Impression: Ms. 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 In the ED: Vital signs showed T 99.1, HR 106, RR 18, BP 124/84 and O2 saturation 09% on room air. Labs were significant for WBC 13.4, H&H 13.4/33.6, plt 293, MCV 85.5, left shift with 85% segmented neutrophils and 1 band. BEP showed a Na of 124, K 4.5, CL 91, HCO3 18, BUN 18, cre 0.8, AG 14, glucose 886, negative acetone, serum osmolality 329, lactic acid 4.0, AST and ALT with normal limits, alkaline phosphatase 145. VBG was done and showed: PH 7.38, PCO2 39, bicarbonate 22. CXR was significant for right lower lobe and left lower lobe parahilar infiltrate. CT abdomen/pelvis done at [facility] showed interval worsening of patchy groundglass airspace opacities in visualized bilateral lower lobes, right middle lobe and lingula, s/o worsening infective/ inflammatory infiltrate. No acute abdominal pelvic abnormalities. Small left adrenal nodule likely adenoma. Patient is currently admitted to the ICU and the following is the management: 1. Hyperosmolar hyperglycemic nonketotic state with insulin non-compliance * Endocrinology consult with Dr. Marcos MD appreciated * HgA1C on admission of 14.6 * Patient off of insulin drip and currently on 50 U SC levemir BID along with TIDAC/HS novolog sliding scales * CC1 diet * Continue accuchecks TIDAC/HS 2. Acute hypoxic respiratory failure * Noted bilateral pulmonary infiltrates, differential CAP vs inflammatory disease vs fluid overload * With noted lactic acidosis on admission, concern for underlying infectious etiology high on differential * Noted acute worsening of respiratory status overnight requiring BiPAP, lasix and 125 IV solumedrol * Hold off on further steroids at this point * 20 IV lasix today (IVF discontinued) * Continue IV ceftriaxone and azithromycin pending final culture results (NGTD) * ESR, CRP and RF high; follow up BRADY, ANCA, Sjogrens Ab * Echocardiogram ordered for today, follow up results * EKG and troponin this AM negative for ACS (trop <0.01) * Cardiology consult with Dr. Jamarcus MD appreciated, follow up recommendations * Repeat CXR in AM * Spiriva one puff daily, flovent 220 mcg 2 puff BID, mucinex BID 3. Pseudohyponatremia * Na on admission 124, corrected Na of 137 due to hyperglycemia * Monitor ICU bundle 4. Familial hypertriglyceridemia * With ASCVD risk calculator, patient's 10 year risk is 11-13% for heart disease or stroke * Start ASA 81 mg PO daily today * Continue high-intensity statin and fenofibrate * Repeat lipid panel in AM * Records from ccu nurse unable to be obtained as patient does not know ccu nurse's name and no med history from ccu nurse * Low fat, low carb diet FULL CODE DVTP: Heparin SC Diet: CC1 Mild-moderate pain pathway Problem List: 1. Hyperosmolar (nonketotic) coma 2. Pneumonia 3. Abdominal pain Pain Ratin Pain Location: Bilateral ribs Tomorrow's Labs & Rationales: CBC (leukocytosis, likely reactive) ICU bundle (hyponatremia, hyperglycemia) Plan DVT/Prophylaxis: pharmacological
[2016-09-25 08:00] VITALS: BP 102/68
--- NOTE | 2016-09-25 08:22 | PN- Diabetes ---
Assessment/Plan Assessment: 46-year-old female, [place], with past medical history significant for diabetes typ2, approximately 10 episodes of pancreatitis due to significantly elevated triglyceride with the highest level of over 60,000 required plasmapheresis 3 years ago,who comes in for chief complaint of malaise, cough, rib pain and shortness of breath. She was admitted for pneumonia, hyperosmolar hyperglycemic state and significant dyslipidemia. Insulin drip was discontinued yesterday afternoon and she was put on Levemir 50 units twice a day, Novolog coverage before meals and Novolog coverage at bedtime. With regards to dyslipidemia, she is on atorvastatin 80 mg daily, fenofibrate diet 145 mg daily and low fat diet. Repeat lipid panel this morning showed CHOL 550, TRIG 1940, LDL 40 and HDL 47; TSH 0.295, free T4 1.44, CK 87. She had respiratory distress last night and received Solumedrol 125 mg iv x1 midnight. She was put on BIPAP. Her breathing has been better this morning. But her glucose level is 395 this morning. Patient's appetite is okay and she still would like to eat her breakfast. Plan: 1. DM: continue the current insulin regimen for now ---Levemir 50 units twice a day; ---Novolog coverage before meals; ---Novolog coverage at bedtime; ---monitor FSGs. 2. dyslipidemia: ---continue low fat diet ---continue Atorvastatin 80 mg daily ---continue fenofibrate 145 mg daily will follow. Subjective Subjective: She feels slightly better this morning. Objective Last 24 Hrs of Vital Signs/I&O Vital Signs Date Time Temp Pulse Resp B/P B/P Pulse O2 O2 Flow FiO2 Mean Ox Delivery Rate 09/25 0543 86 98 09/25 0400 98 BIPAP 40% 09/25 0400 90 98 / 0051 98 100 06/05 0000 95 Nasal 50% Cannula 09/25 0000 97.3 102 38 92/70 95 Nasal 50% Cannula 09/24 2100 98.3 88 20 140/80 100 Nasal 2.0L Cannula 09/24 2000 96 Nasal 3.0L Cannula 09/24 1727 89 Nasal 2.0L Cannula 09/24 1600 100 Nasal 2.0L Cannula 09/24 1200 95 Nasal 2.0L Cannula 09/24 0907 Nasal 3.0L Cannula 09/24 0851 97 Nasal 3.0L Cannula Intake & Output 09/25 1600 09/25 0800 09/25 0000 Intake Total 246 2015 Output Total 1775 Balance -1529 2015 Intake, IV 176 1056 Intake, Oral 70 960 Number 0 Bowel Movements Output, Urine 1775 Patient 145 lb Weight Weight Bed scale Measurement Method Findings Pertinent Lab/Geo Results: Laboratory Tests 09/25 09/25 0415 0415 Chemistry Sodium (137 - 145 mmol/L) 134 L Potassium (3.5 - 5.1 mmol/L) 4.7 Chloride (98 - 107 mmol/L) 106 Carbon Dioxide (22 - 30 mmol/L) 20 L Anion Gap (5 - 16) 8 BUN (7 - 17 mg/dL) 19 H Creatinine (0.5 - 1.0 mg/dL) 0.6 Estimated GFR (>60 ml/min) > 60 Glucose (65 - 99 mg/dL) 329 H Calcium (8.4 - 10.2 mg/dL) 8.4 Phosphorus (2.5 - 4.5 mg/dL) 2.9 Magnesium (1.6 - 2.3 mg/dL) 2.0 Total Bilirubin (0.2 - 1.3 mg/dL) 0.4 Direct Bilirubin (< 0.4 mg/dL) 0.3 AST (14 - 36 U/L) 24 ALT (9 - 52 U/L) 30 Alkaline Phosphatase (<127 U/L) 129 H Creatine Kinase (30 - 135 U/L) 87 C-React Prot High Sens (1.0 - 3.0 mg/L) > 15.0 H Total Protein (6.3 - 8.2 g/dL) 5.6 L Albumin (3.5 - 5.0 g/dL) 2.7 L Triglycerides (<150 mg/dL) 1940 H Cholesterol (<200 MG/DL) 550 H LDL Cholesterol Direct (<100 mg/dL) 40.08 LDL Cholesterol, Calc (65 - 129 MG/DL) ND HDL Cholesterol (40 - 60 mg/dL) 47 Cholesterol/HDL Ratio (0.00 - 4.23 %) 11.7 H TSH (0.270 - 4.200 uIU/mL) 0.295 Free T4 (0.64 - 1.79 ng/dL) 1.44 Hematology CBC w Diff MAN DIFF ORDERED WBC (4.8 - 10.8 /CUMM) 15.9 H RBC (4.20 - 5.40 /CUMM) 3.53 L Hgb (12.0 - 16.0 G/DL) 10.1 L Hct (37 - 47 %) 30.3 L MCV (81.0 - 99.0 FL) 85.8 MCH (27.0 - 31.0 PG) 28.5 RDW (11.5 - 14.5 %) 15.7 H Plt Count (130 - 400 /CUMM) 268 MPV (7.4 - 10.4 FL) 9.6 Segmented Neutrophils (42.2 - 75.2 %) 88 H Band Neutrophils (0.0 - 5.0 %) 4 Lymphocytes (20.5 - 51.1 %) 7 L Monocytes (1.7 - 9.3 %) 1 L Platelet Estimate (ADEQUATE) ADEQUATE Normocytic RBCs VERIFIED Normochromic RBCs VERIFIED PUBS MCHC (33.0 - 37.0 G/DL) 33.2 ESR Westergren (0 - 20 MM) 129 H Immunology Rheum Factor Semi-Quant (<12 IU/Ml) 13.5 H ANCA Pending SS-A/Ro Antibody Pending SS-B/La Antibody Pending 09/25 09/24 09/24 09/24 09/24 0010 1820 1610 1220 1015 Blood Gas pH (7.35 - 7.45 PH) 7.35 pCO2 (35 - 45 TORR) 32 L pO2 (80 - 100 TORR) 82 HCO3 (21 - 28 MEQ/L) 18 L ABG O2 Sat (Measured) (>96.0 %) 95.0 L P-50 (Temp Corrected) N Carboxyhemoglobin (1.5 - 5.0 %) 0.3 L O2 Concentration % 45% O2 Delivery Method [facility] Chemistry Sodium (137 - 145 mmol/L) 138 Potassium (3.5 - 5.1 mmol/L) 3.8 Chloride (98 - 107 mmol/L) 110 H Carbon Dioxide (22 - 30 mmol/L) 15 L Anion Gap (5 - 16) 12 BUN (7 - 17 mg/dL) 24 H Creatinine (0.5 - 1.0 mg/dL) 0.6 Estimated GFR (>60 ml/min) > 60 Glucose (65 - 99 mg/dL) 132 H Lactic Acid (0.7 - 2.1 mmol/L) 1.3 2.1 3.6 H Calcium (8.4 - 10.2 mg/dL) 8.5 Phosphorus (2.5 - 4.5 mg/dL) 4.0 Magnesium (1.6 - 2.3 mg/dL) 2.0 Total Bilirubin (0.2 - 1.3 mg/dL) 0.4 AST (14 - 36 U/L) 20 ALT (9 - 52 U/L) 28 Albumin (3.5 - 5.0 g/dL) 2.9 L Amylase (30 - 110 U/L) 47 Lipase (23 - 300 U/L) 37 Immunology BRADY Titer Pending Anti-Nuclear Antibody Pending Miscellaneous Phlebotomy Draw Site RIGHT BRACHIAL
--- NOTE | 2016-09-25 09:23 | RADIOLOGY REPORT ---
EXAMINATION: XR PORTABLE CHEST CLINICAL INFORMATION: Pneumonia, follow-up x-ray COMPARISON: 09/24/2016 TECHNIQUE: Portable frontal view of the chest was obtained. FINDINGS: Lung volumes are symmetric. There is redemonstration of extensive multifocal bilateral airspace opacities without significant change from prior. No pneumothorax is seen. No significant pleural effusion. The cardiomediastinal silhouette is stable. No acute osseous findings are seen. IMPRESSION: Redemonstration of extensive multifocal airspace opacities, similar to prior. Appearance may reflect edema or pneumonia.
--- NOTE | 2016-09-25 09:26 | NUR ---
PT DROWSY AROUSABLE ON BIPAP. RT TO BEDSIDE TO TAKE OFF AND PLACE ON 4L NC. BS 397. STARTED ON C1 DIET. DR PERKINS CONSULTED AND ORDERED FOR HER TO STAY ON CURRENT LEVEMIR AND AM COVERAGE.
--- NOTE | 2016-09-25 09:31 | PN- CRCU ---
See Addendum Subjective HPI/Critical Care Issues: Improved this am. She had respiratory distress last night and received Solumedrol 125 mg iv x1 midnight. She was put on BIPAP. Her breathing has been better this morning. But her glucose level is 395 this morning. Patient's appetite is okay and she still would like to eat her breakfast. Coughing is much improved She still has fatigue Mild chest discomfort Laboratory Tests 09/25 09/25 0415 0415 Chemistry Sodium (137 - 145 mmol/L) 134 L Potassium (3.5 - 5.1 mmol/L) 4.7 Chloride (98 - 107 mmol/L) 106 Carbon Dioxide (22 - 30 mmol/L) 20 L Anion Gap (5 - 16) 8 BUN (7 - 17 mg/dL) 19 H Creatinine (0.5 - 1.0 mg/dL) 0.6 Estimated GFR (>60 ml/min) > 60 Glucose (65 - 99 mg/dL) 329 H Calcium (8.4 - 10.2 mg/dL) 8.4 Phosphorus (2.5 - 4.5 mg/dL) 2.9 Magnesium (1.6 - 2.3 mg/dL) 2.0 Total Bilirubin (0.2 - 1.3 mg/dL) 0.4 Direct Bilirubin (< 0.4 mg/dL) 0.3 AST (14 - 36 U/L) 24 ALT (9 - 52 U/L) 30 Alkaline Phosphatase (<127 U/L) 129 H Creatine Kinase (30 - 135 U/L) 87 C-React Prot High Sens (1.0 - 3.0 mg/L) > 15.0 H Total Protein (6.3 - 8.2 g/dL) 5.6 L Albumin (3.5 - 5.0 g/dL) 2.7 L Triglycerides (<150 mg/dL) 1940 H Cholesterol (<200 MG/DL) 550 H LDL Cholesterol Direct (<100 mg/dL) 40.08 LDL Cholesterol, Calc (65 - 129 MG/DL) ND HDL Cholesterol (40 - 60 mg/dL) 47 Cholesterol/HDL Ratio (0.00 - 4.23 %) 11.7 H TSH (0.270 - 4.200 uIU/mL) 0.295 Free T4 (0.64 - 1.79 ng/dL) 1.44 Hematology CBC w Diff MAN DIFF ORDERED WBC (4.8 - 10.8 /CUMM) 15.9 H RBC (4.20 - 5.40 /CUMM) 3.53 L Hgb (12.0 - 16.0 G/DL) 10.1 L Hct (37 - 47 %) 30.3 L MCV (81.0 - 99.0 FL) 85.8 MCH (27.0 - 31.0 PG) 28.5 RDW (11.5 - 14.5 %) 15.7 H Plt Count (130 - 400 /CUMM) 268 MPV (7.4 - 10.4 FL) 9.6 Segmented Neutrophils (42.2 - 75.2 %) 88 H Band Neutrophils (0.0 - 5.0 %) 4 Lymphocytes (20.5 - 51.1 %) 7 L Monocytes (1.7 - 9.3 %) 1 L Platelet Estimate (ADEQUATE) ADEQUATE Normocytic RBCs VERIFIED Normochromic RBCs VERIFIED PUBS MCHC (33.0 - 37.0 G/DL) 33.2 ESR Westergren (0 - 20 MM) 129 H Immunology Rheum Factor Semi-Quant (<12 IU/Ml) 13.5 H ANCA Pending SS-A/Ro Antibody Pending SS-B/La Antibody Pending 09/25 09/24 09/24 09/24 09/24 0010 1820 1610 1220 1015 Blood Gas pH (7.35 - 7.45 PH) 7.35 pCO2 (35 - 45 TORR) 32 L pO2 (80 - 100 TORR) 82 HCO3 (21 - 28 MEQ/L) 18 L ABG O2 Sat (Measured) (>96.0 %) 95.0 L P-50 (Temp Corrected) N Carboxyhemoglobin (1.5 - 5.0 %) 0.3 L O2 Concentration % 45% O2 Delivery Method [facility] Chemistry Sodium (137 - 145 mmol/L) 138 Potassium (3.5 - 5.1 mmol/L) 3.8 Chloride (98 - 107 mmol/L) 110 H Carbon Dioxide (22 - 30 mmol/L) 15 L Anion Gap (5 - 16) 12 BUN (7 - 17 mg/dL) 24 H Creatinine (0.5 - 1.0 mg/dL) 0.6 Estimated GFR (>60 ml/min) > 60 Glucose (65 - 99 mg/dL) 132 H Lactic Acid (0.7 - 2.1 mmol/L) 1.3 2.1 3.6 H Calcium (8.4 - 10.2 mg/dL) 8.5 Phosphorus (2.5 - 4.5 mg/dL) 4.0 Magnesium (1.6 - 2.3 mg/dL) 2.0 Total Bilirubin (0.2 - 1.3 mg/dL) 0.4 AST (14 - 36 U/L) 20 ALT (9 - 52 U/L) 28 Albumin (3.5 - 5.0 g/dL) 2.9 L Amylase (30 - 110 U/L) 47 Lipase (23 - 300 U/L) 37 Immunology BRADY Titer Pending Anti-Nuclear Antibody Pending Miscellaneous Phlebotomy Draw Site RIGHT BRACHIAL 09/24 09/24 09/24 0751 0352 0300 Chemistry Sodium (137 - 145 mmol/L) 136 L 134 L Potassium (3.5 - 5.1 mmol/L) 4.1 4.0 Chloride (98 - 107 mmol/L) 106 105 Carbon Dioxide (22 - 30 mmol/L) 16 L 17 L Anion Gap (5 - 16) 14 12 BUN (7 - 17 mg/dL) 26 H 24 H Creatinine (0.5 - 1.0 mg/dL) 0.6 0.6 Estimated GFR (>60 ml/min) > 60 > 60 BUN/Creatinine Ratio (7 - 25 %) 43.3 H 40.0 H Glucose (65 - 99 mg/dL) 455 H 418 H Lactic Acid (0.7 - 2.1 mmol/L) 2.2 H 2.1 Uric Acid (2.5 - 6.2 mg/dL) 5.4 Calcium (8.4 - 10.2 mg/dL) 8.6 8.3 L Phosphorus (2.5 - 4.5 mg/dL) 3.7 Magnesium (1.6 - 2.3 mg/dL) 2.0 Triglycerides (<150 mg/dL) 3046 H Cholesterol (<200 MG/DL) 588 H LDL Cholesterol Direct (<100 mg/dL) < 60.00 LDL Cholesterol, Calc (65 - 129 mg/dL) ND HDL Cholesterol (40 - 60 mg/dL) 47 Cholesterol/HDL Ratio (0.00 - 4.23 %) 12.5 H TSH (0.270 - 4.200 uIU/mL) 0.573 Free T4 (0.64 - 1.79 ng/dL) 1.60 Total T3 (0.97 - 1.69 ng/mL) 0.78 L Hematology CBC w Diff MAN DIFF ORDERED WBC (4.8 - 10.8 /CUMM) 14.5 H RBC (4.20 - 5.40 /CUMM) 3.94 L Hgb (12.0 - 16.0 G/DL) 11.3 L Hct (37 - 47 %) 33.6 L MCV (81.0 - 99.0 FL) 85.5 MCH (27.0 - 31.0 PG) 28.8 RDW (11.5 - 14.5 %) 15.4 H Plt Count (130 - 400 /CUMM) 293 MPV (7.4 - 10.4 FL) 9.8 Segmented Neutrophils (42.2 - 75.2 %) 78 H Band Neutrophils (0.0 - 5.0 %) 8 H Lymphocytes (20.5 - 51.1 %) 10 L Monocytes (1.7 - 9.3 %) 2 Eosinophils (0 - 5.0 %) 1 Metamyelocytes (0.0 - 1.0 %) 1 Platelet Estimate (ADEQUATE) ADEQUATE Normocytic RBCs VERIFIED Normochromic RBCs VERIFIED PUBS MCHC (33.0 - 37.0 G/DL) 33.7 09/24 05/03 06/03 0018 2233 2133 Blood Gas Bicarbonate Actual (22 - 26 MEQ/L) 22 Mixed VBG pH (7.31 - 7.41 PH) 7.38 Mixed VBG pCO2 (41 - 51 TORR) 39 L Mixed VBG O2 Saturation (35 - 45 TORR) 49 H P-50 (Temp Corrected) N Carboxyhemoglobin (1.5 - 5.0 %) 0.9 L O2 Concentration % 1L Temperature (97.0 - 100.0 FARH) 99.6 O2 Delivery Method [facility] Chemistry Total Beta HCG Cancelled Miscellaneous Phlebotomy Draw Site VENOUS Toxicology Urine Opiates Screen (>2000 NG/ML) 153.00 Methadone Screen (>300 NG/ML) 59 Barbiturate Screen (>200 NG/ML) < 60 Ur Phencyclidine Scrn (>25 NG/ML) < 6.00 Amphetamines Screen (>1000 NG/ML) < 100 U Benzodiazepines Scrn (>200 NG/ML) < 85 Urine Cocaine Screen (>300 NG/ML) < 50 Urine Cannabis Screen (>50 NG/ML) < 5.00 Urines Urine Color (YEL,AMB,STR) STRAW Urine Clarity (CLEAR) CLEAR Urine pH (5.0 - 8.0) 6.0 Ur Specific [place] (1.001 - 1.035) <= 1.005 Urine Protein (NEG,<30 MG/DL) NEG Urine Ketones (NEG) NEG Urine Nitrite (NEG) NEG Urine Bilirubin (NEG) NEG Urine Urobilinogen (0.1 - 1.0 EU/dl) 0.2 Ur Leukocyte Esterase (NEG) NEG Ur Microscopic EXAM NOT REQUIRED Urine Hemoglobin (NEG) NEG Urine Glucose (N MG/DL) >=1000 H 09/23 Chemistry Sodium (137 - 145 mmol/L) 124 L Potassium (3.5 - 5.1 mmol/L) 4.5 Chloride (98 - 107 mmol/L) 91 L Carbon Dioxide (22 - 30 mmol/L) 18 L Anion Gap (5 - 16) 14 BUN (7 - 17 mg/dL) 18 H Creatinine (0.5 - 1.0 mg/dL) 0.8 Estimated GFR (>60 ml/min) > 60 BUN/Creatinine Ratio (7 - 25 %) 22.5 Glucose (65 - 99 mg/dL) 886 *H Hemoglobin A1c (4.2 - 5.8 %) 14.6 H Serum Osmolality (285 - 295 MOSM/KG) 329 H Lactic Acid (0.7 - 2.1 mmol/L) 4.0 H Calcium (8.4 - 10.2 mg/dL) 8.7 Magnesium (1.6 - 2.3 mg/dL) 1.9 Total Bilirubin (0.2 - 1.3 mg/dL) 0.6 AST (14 - 36 U/L) 21 ALT (9 - 52 U/L) 28 Alkaline Phosphatase (<127 U/L) 145 H Total Protein (6.3 - 8.2 g/dL) 6.4 Albumin (3.5 - 5.0 g/dL) 3.4 L Globulin (1.9 - 4.2 gm/dL) 3.0 Albumin/Globulin Ratio (1.1 - 2.2 %) 1.1 Amylase (30 - 110 U/L) 35 Lipase (23 - 300 U/L) 42 Total Beta HCG (NEGATIVE) NEGATIVE Hematology CBC w Diff MAN DIFF ORDERED WBC (4.8 - 10.8 /CUMM) 13.4 H RBC (4.20 - 5.40 /CUMM) 3.92 L Hgb (12.0 - 16.0 G/DL) 11.4 L Hct (37 - 47 %) 33.6 L MCV (81.0 - 99.0 FL) 85.5 MCH (27.0 - 31.0 PG) 29.1 RDW (11.5 - 14.5 %) 14.8 H Plt Count (130 - 400 /CUMM) 293 MPV (7.4 - 10.4 FL) 9.5 Segmented Neutrophils (42.2 - 75.2 %) 85 H Band Neutrophils (0.0 - 5.0 %) 1 Lymphocytes (20.5 - 51.1 %) 13 L Monocytes (1.7 - 9.3 %) 1 L Platelet Estimate (ADEQUATE) ADEQUATE Normocytic RBCs VERIFIED Normochromic RBCs VERIFIED PUBS MCHC (33.0 - 37.0 G/DL) 34.1 Other Body Source Fld Total RBCs Counted (%) 100 Toxicology Acetone Level (NEGATIVE) NEGATIVE Microbiology Date/Time Procedure - Status Source Growth 09/24 2354 Urine Culture - ORD URINE ROUT 09/24 1100 Surveillance Culture - RECD UPPER RESP 09/24 1100 Surveillance Culture - RECD GI 09/24 0616 Legionella Antigen - CAN URINE ROUT Cancelled: ADDED TO [id number] 09/24 0453 Respiratory Culture - COLB LOWER RESP 09/24 0453 Gram Stain - COLB LOWER RESP 09/23 2233 Urine Culture - RES URINE ROUT 09/23 2223 Legionella Antigen - COMP URINE ROUT 09/23 2223 Streptococcus pneumoniae Antigen (M - COMP URINE ROUT 09/23 2115 Blood Culture - RES BLOOD 09/23 2040 Blood Culture - RES BLOOD Objective Current Medications: Current Medications Sig/Samara Start time Last Medication Dose Route Stop Time Status Admin Acetaminophen 1,000 MG ONCE ONE 09/24 1115 DC 09/24 N/A 1 UNIT IV 09/24 1129 1252 Acetaminophen 650 MG Q6P PRN 09/24 0300 AC PO Albuterol Sulfate 2 PUF Q4-6 PRN PRN 09/24 1000 AC INH Albuterol Sulfate 3 ML EVERY 4 HRS/AWAKE 09/24 0845 AC 0604 INH 2101 Atorvastatin Calcium 80 MG 1700 06/04 1700 AC 06/ PO 1714 Azithromycin 500 MG 2200 09/24 2200 AC 09/24 Sodium Chloride 250 ML IV 2224 Ceftriaxone Sodium 1,000 MG 2200 09/24 2200 AC / IV 2224 Fenofibrate 145 MG DAILY 06/ 1043 AC 06/ PO 1253 Fluticasone 4 PUF BID 09/24 2200 AC 09/24 Propionate INH 2226 Furosemide 20 MG ONCE ONE 09/25 0830 DC IV PUSH 09/25 0831 Furosemide 20 MG ONCE ONE 09/25 0115 DC 06 IV 09/25 0116 0113 Furosemide 40 MG ONCE ONE 09/24 2345 CAN IV 09/24 2346 Gemfibrozil 600 MG BID 09/24 1000 DC 06 PO 0856 Guaifenesin 600 MG Q12 09/24 2200 AC 09/24 PO 2225 Heparin Sodium 5,000 UNIT Q8 09/24 0600 09/25 (Porcine) SC 0611 Insulin Aspart 0 AT BEDTIME 09/24 2200 09/24 SC 2200 Insulin Aspart 0 TIDAC 09/24 1700 09/25 SC 0806 Insulin Detemir 50 UNITS BID 09/25 1000 SC Insulin Detemir 50 UNITS ONCE ONE 09/24 1700 DC 09/24 SC 09/24 1701 1714 Insulin Human Regular 100 UNIT Q24H 09/24 0400 DC 06 Sodium Chloride 100 ML IV 0420 Ipratropium Boring 2.5 ML EVERY 4 HRS/AWAKE 09/24 0845 AC 09/24 INH 2101 Ketorolac 30 MG ONCE ONE 09/24 1445 DC 06 Tromethamine IV 09/24 1446 1448 Methylprednisolone 125 MG ONCE ONE 09/25 0015 DC 09/25 IV 09/25 0016 0012 Morphine Sulfate 2 MG Q6-PRN PRN 09/24 2345 IV Morphine Sulfate 1 MG ONCE ONE 09/24 2045 DC 09/24 IV 09/24 2046 2049 Morphine Sulfate 2 MG ONCE ONE 09/24 1515 DC 09/24 IV 0604 1516 1534 Morphine Sulfate 2 MG Q4 PRN 09/24 0315 DC 06 IV 2328 Naloxone HCl 0.4 MG ONCE ONE 09/25 0100 DC 06 IV 09/25 0101 0104 Naloxone HCl 0.2 MG ONCE ONE 09/25 0015 DC 06/ IV 09/25 0016 0009 Omeprazole 40 MG DAILY AC 09/25 0700 AC 09/25 PO 0612 Oxycodone HCl 5 MG Q6P PRN / 0315 AC 09/24 PO 0856 Pantoprazole Sodium 40 MG DAILY 09/24 1000 DC 06/ IV 0858 Paroxetine HCl 20 MG DAILY 09/24 1000 AC 09/24 PO 0857 Potassium Chloride 20 MEQ ONCE ONE 09/24 1845 DC 06/ PO 09/24 1846 2030 Potassium Chloride 20 MEQ Q6H 09/24 0715 DC 09/24 Sodium Chloride 1,000 ML IV 0859 Quetiapine Fumarate 100 MG QPM 09/24 2200 AC 09/24 PO 2225 Sodium Chloride 1,000 ML .Q10H 09/24 1045 DC 09/24 IV 2031 Sodium Chloride 1,000 ML Q10H 09/24 1015 DC IV Tiotropium Boring 1 PUF DAILY 09/25 1000 AC INH Tiotropium Boring 1 PUF DAILY 09/25 1000 AC INH Tizanidine HCl 2 MG BID 09/24 1000 AC 09/24 PO 2224 Tramadol HCl 50 MG Q6 09/24 2044 AC 09/24 PO 2049 Vital Signs & I&O Last 24 Hrs of Vitals and I&O: Vital Signs Date Time Temp Pulse Resp B/P B/P Pulse O2 O2 Flow FiO2 Mean Ox Delivery Rate 09/25 0845 99 Nasal 3.0L Cannula 09/25 0750 83 100 09/25 0543 86 98 09/25 0400 98 BIPAP 40% 09/25 0400 90 98 / 0051 98 100 06/ 0000 95 Nasal 50% Cannula 09/25 0000 97.3 102 38 92/70 95 Nasal 50% Cannula 09/24 2100 98.3 88 20 140/80 100 Nasal 2.0L Cannula 09/24 2000 96 Nasal 3.0L Cannula 09/24 1727 89 Nasal 2.0L Cannula 09/24 1600 100 Nasal 2.0L Cannula 09/24 1200 95 Nasal 2.0L Cannula Intake & Output 09/25 1600 09/25 0800 06 0000 Intake Total 246 2016 Output Total 1775 Balance -1529 2016 Intake, IV 176 1056 Intake, Oral 70 960 Number 0 Bowel Movements Output, Urine 1775 Patient 145 lb Weight Weight Bed scale Measurement Method Impression/Plan Impression/Plan Impression/Plan: 46-year-old female, [place], with past medical history significant for diabetes typ2, approximately 10 episodes of pancreatitis due to significantly elevated triglyceride with the highest level of over 60,000 required plasmapheresis 3 years ago,who comes in with SIg DM with Hyperosmolar state Familial hypertriglyceredemia with sig elevated triglycerides Bilateral pulm infiltrates prob CAP vs other inflammatory lung disease Last night had sig dyspnea rxd with bipap and steroids and lasix with good diuresis Prob went into pulm edema yesterday as noted in the xray REC COnt INSulin per endo Dc ivf cont statin and fenofibrate IV lasix 20 mg Echo today EKG, Check troponin from this ams lab If high and if ekg is abnormal ask Cardio to see Dr Ricketts Cont abx Await cultures Rpt cxr in am PO ppi Keep hob up Start flovent 220m mcg 2 puff bid Hold further systemic steroids Spiriva one puff daily Mucinex po bid Check triglycerides and lipids in am WIll follow closely
--- NOTE | 2016-09-25 10:43 | NUR ---
[employer]ES [employer] AT BEDSIDE OBTAINING ECHOCARDIOGRAM.
--- NOTE | 2016-09-25 11:25 | Cons- Cardiology ---
General Information and HPI Consulting Request Date of Consult: 09/25/16 Requested By: RG TORRES,KAREN Reason for Consult: Shortness of breath Primary assistant foreman: [place] Source of Information: patient History of Present Illness: This is a 46 y/o female with a past history of insulin-dependent diabetes, severe familial hypertriglyceridemia with episodes of prior pancreatitis and previously requiring plasmapheresis, and nicotine dependence who presented with a chief complaint of generalized malaise, intermittent abdominal discomfort, and dyspnea with the cough. She denied acute associated chest discomfort although she does tell me she had a recent stress test due to the some chest discomfort with her assistant foreman in [place] although she is unsure about the test results. She apparently was recently treated for a URI with outpatient antibiotics. She is an active smoker although she says she quit 2 days ago. She apparently received morphine for pain overnights Rodolfo then required Narcan for respiratory insufficiency. She was also noted to have an abnormal chest ray with some concern for flash pulmonary edema and was given IV Lasix. She wasreceiving IV fluids for hyperosmolar state. She had some residual shortness of breath this morning but is improved. She was transiently on BiPAP overnight but is on nasal cannula oxygen this morning. She notes some mild residual chest discomfort made worse with coughing. Denies slurring of speech, focal weakness, syncope, worsening edema, or obvious bleeding. She does endorse intermittent low-level palpitations in the past. She tells me she received an injection from her assistant foreman for cholesterol which I assume is a PCS K-9 inhibitor drug. Allergies/Medications Allergies: Coded Allergies: No Known Allergies (11/20/15) Home Med List: Albuterol Sulfate (Ventolin Hfa) 90 MCG HFA.AER.AD 2 PUF INH PRN RESPIRATORY (Reported) Albuterol Sulfate 2.5 MG/3 ML (0.083 %) VIAL.NEB 1 Vial INH/LEMUEL PRN RESPIRATORY (Reported) Fenofibrate 160 MG TABLET 1 TAB PO DAILY CHOLESTEROL/TRIGLYCERIDES (Reported) Gabapentin 100 MG CAPSULE 1 CAP PO TID NERVE PAIN (Reported) Gemfibrozil 600 MG TABLET 1 TAB PO BID CHOLESTEROL (Reported) Insulin Aspart, Recombinant (Novolog Flexpen) 100 UNIT/ML INSULN.PEN 20 UNITS SC TIDAC/HS DM (Reported) Insulin-Lantus (Lantus) 100 UNIT/1 ML VIAL 40 UNITS SC BID DIABETES (Reported ) Ketorolac Tromethamine (Acular) 0.5 % DROPS 1 GTT OD DAILY RIGHT EYE ( Reported) Lansoprazole 30 MG CAPSULE. 1 CAP PO DAILY GI (Reported) Levofloxacin (Levaquin) 500 MG TABLET 1 TAB PO DAILY ANTIBIOTIC (Reported) Metformin HCl 500 MG TABLET 1 TAB PO BID DIABETES (Reported) Paroxetine HCl 20 MG TABLET 1 TAB PO DAILY MENTAL HEALTH (Reported) Quetiapine Fumarate 100 MG TABLET 1 TAB PO QPM DEPRESSION (Reported) Tizanidine HCl 2 MG TABLET 1 TAB PO BID MUSCLE RELAXER (Reported) Tobramycin 0.3 % DROPS 1 GTT OD DAILY RIGHT EYE (Reported) Current Medications: Current Medications Sig/Samara Start time Last Medication Dose Route Stop Time Status Admin Acetaminophen 1,000 MG ONCE ONE 09/24 1115 DC 09/24 N/A 1 UNIT IV 09/24 1129 1252 Acetaminophen 650 MG Q6P PRN 09/24 0300 AC PO Albuterol Sulfate 2 PUF Q4-6 PRN PRN 09/24 1000 AC INH Albuterol Sulfate 3 ML EVERY 4 HRS/AWAKE 09/24 0845 AC 09/24 INH 2101 Aspirin 81 MG DAILY 09/25 1000 AC PO Atorvastatin Calcium 80 MG 1700 09/24 1700 AC 09/24 PO 1714 Azithromycin 500 MG 2200 09/24 2200 AC 09/24 Sodium Chloride 250 ML IV 2224 Ceftriaxone Sodium 1,000 MG 2200 09/24 2200 AC 09/24 IV 2224 Fenofibrate 145 MG DAILY 09/24 1043 AC 09/25 PO 0936 Fluticasone 4 PUF BID 09/24 2200 AC 09/25 Propionate INH 0938 Furosemide 20 MG ONCE ONE 09/25 0830 DC 09/25 IV PUSH 09/25 0831 0937 Furosemide 20 MG ONCE ONE 09/25 0115 DC / IV 09/25 0116 0113 Furosemide 40 MG ONCE ONE 09/24 2345 CAN IV 09/24 2346 Guaifenesin 600 MG Q12 09/24 2200 AC 09/25 PO 0937 Heparin Sodium 5,000 UNIT Q8 09/24 0600 AC 09/25 (Porcine) SC 0611 Insulin Aspart 0 AT BEDTIME 09/24 2200 AC 09/24 SC 2200 Insulin Aspart 0 TIDAC 09/24 1700 AC 06/ SC 0806 Insulin Detemir 50 UNITS BID 09/25 1000 AC 06 SC 0936 Insulin Detemir 50 UNITS ONCE ONE 09/24 1700 DC 06 SC 09/24 1701 1714 Insulin Human Regular 100 UNIT Q24H 09/24 0400 DC 06 Sodium Chloride 100 ML IV 0420 Ipratropium Tigrett 2.5 ML EVERY 4 HRS/AWAKE 09/24 0845 AC 09/24 INH 2101 Ketorolac 30 MG ONCE ONE 09/24 1445 DC 09/24 Tromethamine IV 09/24 1446 1448 Methylprednisolone 125 MG ONCE ONE 09/25 0015 DC 09/25 IV 09/25 0016 0012 Morphine Sulfate 2 MG Q12P PRN 09/25 1000 AC IV Morphine Sulfate 2 MG Q6-PRN PRN 09/24 2345 DC IV Morphine Sulfate 1 MG ONCE ONE 09/24 2045 DC 09/24 IV 09/24 2046 2049 Morphine Sulfate 2 MG ONCE ONE 09/24 1515 DC 09/24 IV 09/24 1516 1534 Morphine Sulfate 2 MG Q4 PRN 09/24 0315 DC 09/24 IV 2328 Naloxone HCl 0.4 MG ONCE ONE 09/25 0100 DC 06 IV 09/25 0101 0104 Naloxone HCl 0.2 MG ONCE ONE 09/25 0015 DC 09/25 IV 09/25 0016 0009 Omeprazole 40 MG DAILY AC 09/25 0700 AC 09/25 PO 0612 Oxycodone HCl 5 MG Q6P PRN 09/24 0315 AC 09/24 PO 0856 Pantoprazole Sodium 40 MG DAILY 09/24 1000 DC 09/24 IV 0858 Paroxetine HCl 20 MG DAILY 09/24 1000 AC / PO 0936 Potassium Chloride 20 MEQ ONCE ONE 09/24 1845 DC /04 PO 09/24 1846 2030 Quetiapine Fumarate 100 MG QPM 09/24 2200 AC 09/24 PO 2225 Sodium Chloride 1,000 ML .Q10H 09/24 1045 DC 09/24 IV 2031 Tiotropium Tigrett 1 PUF DAILY 09/25 1000 CAN INH Tiotropium Tigrett 1 PUF DAILY 09/25 1000 AC INH Tizanidine HCl 2 MG BID 09/24 1000 AC 09/24 PO 2224 Tramadol HCl 50 MG Q6 09/24 2044 AC 09/24 PO 2049 Review of Systems Review of Systems: Review of systems as per HPI. The remainder of a 10 point review of systems was reviewed and was otherwise negative. 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 Home Services at Home: NONE Smoking Status: Current Everyday Smoker ETOH Use: occasional use Illicit Drug Use: denies illicit drug use Functional Ability ADLs Independent: dressing, eating, toileting, bathing. Ambulation: independent IADLs Independent: shopping, housework, finances, food prep, telephone, transportation , medication admin. Exam & Diagnostic Data Vital Signs and I&O Vital Signs Date Time Temp Pulse Resp B/P B/P Pulse O2 O2 Flow FiO2 Mean Ox Delivery Rate 09/25 0845 99 Nasal 3.0L Cannula 09/25 08 99 Nasal 4.0L Cannula 09/25 0800 96.8 86 36 102/68 99 Nasal 4.0L Cannula / 0750 83 100 /05 0543 86 98 06/05 0400 98 BIPAP 40% / 0400 90 98 06/05 0051 98 100 06/05 0000 95 Nasal 50% Cannula / 0000 97.3 102 38 92/70 95 Nasal 50% Cannula / 2100 98.3 88 20 140/80 100 Nasal 2.0L Cannula 09/24 2000 96 Nasal 3.0L Cannula 09/24 1727 89 Nasal 2.0L Cannula 09/24 1600 100 Nasal 2.0L Cannula 09/24 1200 95 Nasal 2.0L Cannula Intake & Output 09/25 1600 /05 0800 06/05 0000 / 1600 / 0800 / 0000 Intake Total 246 2015 Output Total 1775 Balance -1529 2015 Intake, IV 176 1056 1525 1999 Intake, Oral 70 960 600 220 Number 0 0 Bowel Movements Output, Urine 1775 Patient 145 lb 144 lb 130 lb Weight Weight Bed scale Bed scale Reported by Patient Measurement Method Physical Exam: General: no apparent distress. Alert. Eyes: No obvious scleral icterus. HEENT: No jugular venous distention or abnormal jugular venous pulsations. Cardiovascular: Normal intensity S1/S2. Regular. PMI not displaced. Respiratory: Coarse breath sounds bilaterally Abdomen: Soft, nontender with no guarding or rebound tenderness. Musculoskeletal: No clubbing or cyanosis noted, no edema Skin: Warm, tattoos noted Neurologic: No gross focal deficits noted. Labs/Geo Results: Laboratory Tests 09/25 09/25 0415 0415 Chemistry Sodium (137 - 145 mmol/L) 134 L Potassium (3.5 - 5.1 mmol/L) 4.7 Chloride (98 - 107 mmol/L) 106 Carbon Dioxide (22 - 30 mmol/L) 20 L Anion Gap (5 - 16) 8 BUN (7 - 17 mg/dL) 19 H Creatinine (0.5 - 1.0 mg/dL) 0.6 Estimated GFR (>60 ml/min) > 60 Glucose (65 - 99 mg/dL) 329 H Calcium (8.4 - 10.2 mg/dL) 8.4 Phosphorus (2.5 - 4.5 mg/dL) 2.9 Magnesium (1.6 - 2.3 mg/dL) 2.0 Total Bilirubin (0.2 - 1.3 mg/dL) 0.4 Direct Bilirubin (< 0.4 mg/dL) 0.3 AST (14 - 36 U/L) 24 ALT (9 - 52 U/L) 30 Alkaline Phosphatase (<127 U/L) 129 H Creatine Kinase (30 - 135 U/L) 87 Troponin I (< 0.11 ng/ml) < 0.01 C-React Prot High Sens (1.0 - 3.0 mg/L) > 15.0 H Total Protein (6.3 - 8.2 g/dL) 5.6 L Albumin (3.5 - 5.0 g/dL) 2.7 L Triglycerides (<150 mg/dL) 1940 H Cholesterol (<200 MG/DL) 550 H LDL Cholesterol Direct (<100 mg/dL) 40.08 LDL Cholesterol, Calc (65 - 129 MG/DL) ND HDL Cholesterol (40 - 60 mg/dL) 47 Cholesterol/HDL Ratio (0.00 - 4.23 %) 11.7 H TSH (0.270 - 4.200 uIU/mL) 0.295 Free T4 (0.64 - 1.79 ng/dL) 1.44 Hematology CBC w Diff MAN DIFF ORDERED WBC (4.8 - 10.8 /CUMM) 15.9 H RBC (4.20 - 5.40 /CUMM) 3.53 L Hgb (12.0 - 16.0 G/DL) 10.1 L Hct (37 - 47 %) 30.3 L MCV (81.0 - 99.0 FL) 85.8 MCH (27.0 - 31.0 PG) 28.5 RDW (11.5 - 14.5 %) 15.7 H Plt Count (130 - 400 /CUMM) 268 MPV (7.4 - 10.4 FL) 9.6 Segmented Neutrophils (42.2 - 75.2 %) 88 H Band Neutrophils (0.0 - 5.0 %) 4 Lymphocytes (20.5 - 51.1 %) 7 L Monocytes (1.7 - 9.3 %) 1 L Platelet Estimate (ADEQUATE) ADEQUATE Normocytic RBCs VERIFIED Normochromic RBCs VERIFIED PUBS MCHC (33.0 - 37.0 G/DL) 33.2 ESR Westergren (0 - 20 MM) 129 H Immunology Rheum Factor Semi-Quant (<12 IU/Ml) 13.5 H ANCA Pending SS-A/Ro Antibody Pending SS-B/La Antibody Pending 09/25 09/24 09/24 09/24 09/24 0010 1820 1610 1220 1015 Blood Gas pH (7.35 - 7.45 PH) 7.35 pCO2 (35 - 45 TORR) 32 L pO2 (80 - 100 TORR) 82 HCO3 (21 - 28 MEQ/L) 18 L ABG O2 Sat (Measured) (>96.0 %) 95.0 L P-50 (Temp Corrected) N Carboxyhemoglobin (1.5 - 5.0 %) 0.3 L O2 Concentration % 45% O2 Delivery Method [facility] Chemistry Sodium (137 - 145 mmol/L) 138 Potassium (3.5 - 5.1 mmol/L) 3.8 Chloride (98 - 107 mmol/L) 110 H Carbon Dioxide (22 - 30 mmol/L) 15 L Anion Gap (5 - 16) 12 BUN (7 - 17 mg/dL) 24 H Creatinine (0.5 - 1.0 mg/dL) 0.6 Estimated GFR (>60 ml/min) > 60 Glucose (65 - 99 mg/dL) 132 H Lactic Acid (0.7 - 2.1 mmol/L) 1.3 2.1 3.6 H Calcium (8.4 - 10.2 mg/dL) 8.5 Phosphorus (2.5 - 4.5 mg/dL) 4.0 Magnesium (1.6 - 2.3 mg/dL) 2.0 Total Bilirubin (0.2 - 1.3 mg/dL) 0.4 AST (14 - 36 U/L) 20 ALT (9 - 52 U/L) 28 Albumin (3.5 - 5.0 g/dL) 2.9 L Amylase (30 - 110 U/L) 47 Lipase (23 - 300 U/L) 37 Immunology BRADY Titer Pending Anti-Nuclear Antibody Pending Miscellaneous Phlebotomy Draw Site RIGHT BRACHIAL 09/24 09/24 09/24 0751 0352 0300 Chemistry Sodium (137 - 145 mmol/L) 136 L 134 L Potassium (3.5 - 5.1 mmol/L) 4.1 4.0 Chloride (98 - 107 mmol/L) 106 105 Carbon Dioxide (22 - 30 mmol/L) 16 L 17 L Anion Gap (5 - 16) 14 12 BUN (7 - 17 mg/dL) 26 H 24 H Creatinine (0.5 - 1.0 mg/dL) 0.6 0.6 Estimated GFR (>60 ml/min) > 60 > 60 BUN/Creatinine Ratio (7 - 25 %) 43.3 H 40.0 H Glucose (65 - 99 mg/dL) 455 H 418 H Lactic Acid (0.7 - 2.1 mmol/L) 2.2 H 2.1 Uric Acid (2.5 - 6.2 mg/dL) 5.4 Calcium (8.4 - 10.2 mg/dL) 8.6 8.3 L Phosphorus (2.5 - 4.5 mg/dL) 3.7 Magnesium (1.6 - 2.3 mg/dL) 2.0 Triglycerides (<150 mg/dL) 3046 H Cholesterol (<200 MG/DL) 588 H LDL Cholesterol Direct (<100 mg/dL) < 60.00 LDL Cholesterol, Calc (65 - 129 mg/dL) ND HDL Cholesterol (40 - 60 mg/dL) 47 Cholesterol/HDL Ratio (0.00 - 4.23 %) 12.5 H TSH (0.270 - 4.200 uIU/mL) 0.573 Free T4 (0.64 - 1.79 ng/dL) 1.60 Total T3 (0.97 - 1.69 ng/mL) 0.78 L Hematology CBC w Diff MAN DIFF ORDERED WBC (4.8 - 10.8 /CUMM) 14.5 H RBC (4.20 - 5.40 /CUMM) 3.94 L Hgb (12.0 - 16.0 G/DL) 11.3 L Hct (37 - 47 %) 33.6 L MCV (81.0 - 99.0 FL) 85.5 MCH (27.0 - 31.0 PG) 28.8 RDW (11.5 - 14.5 %) 15.4 H Plt Count (130 - 400 /CUMM) 293 MPV (7.4 - 10.4 FL) 9.8 Segmented Neutrophils (42.2 - 75.2 %) 78 H Band Neutrophils (0.0 - 5.0 %) 8 H Lymphocytes (20.5 - 51.1 %) 10 L Monocytes (1.7 - 9.3 %) 2 Eosinophils (0 - 5.0 %) 1 Metamyelocytes (0.0 - 1.0 %) 1 Platelet Estimate (ADEQUATE) ADEQUATE Normocytic RBCs VERIFIED Normochromic RBCs VERIFIED PUBS MCHC (33.0 - 37.0 G/DL) 33.7 06/04 06/03 06/03 0018 2233 2133 Blood Gas Bicarbonate Actual (22 - 26 MEQ/L) 22 Mixed VBG pH (7.31 - 7.41 PH) 7.38 Mixed VBG pCO2 (41 - 51 TORR) 39 L Mixed VBG O2 Saturation (35 - 45 TORR) 49 H P-50 (Temp Corrected) N Carboxyhemoglobin (1.5 - 5.0 %) 0.9 L O2 Concentration % 1L Temperature (97.0 - 100.0 FARH) 99.6 O2 Delivery Method NC Chemistry Total Beta HCG Cancelled Miscellaneous Phlebotomy Draw Site VENOUS Toxicology Urine Opiates Screen (>2000 NG/ML) 153.00 Methadone Screen (>300 NG/ML) 59 Barbiturate Screen (>200 NG/ML) < 60 Ur Phencyclidine Scrn (>25 NG/ML) < 6.00 Amphetamines Screen (>1000 NG/ML) < 100 U Benzodiazepines Scrn (>200 NG/ML) < 85 Urine Cocaine Screen (>300 NG/ML) < 50 Urine Cannabis Screen (>50 NG/ML) < 5.00 Urines Urine Color (YEL,AMB,STR) STRAW Urine Clarity (CLEAR) CLEAR Urine pH (5.0 - 8.0) 6.0 Ur Specific Byers (1.001 - 1.035) <= 1.005 Urine Protein (NEG,<30 MG/DL) NEG Urine Ketones (NEG) NEG Urine Nitrite (NEG) NEG Urine Bilirubin (NEG) NEG Urine Urobilinogen (0.1 - 1.0 EU/dl) 0.2 Ur Leukocyte Esterase (NEG) NEG Ur Microscopic EXAM NOT REQUIRED Urine Hemoglobin (NEG) NEG Urine Glucose (N MG/DL) >=1000 H 09/23 204 Chemistry Sodium (137 - 145 mmol/L) 124 L Potassium (3.5 - 5.1 mmol/L) 4.5 Chloride (98 - 107 mmol/L) 91 L Carbon Dioxide (22 - 30 mmol/L) 18 L Anion Gap (5 - 16) 14 BUN (7 - 17 mg/dL) 18 H Creatinine (0.5 - 1.0 mg/dL) 0.8 Estimated GFR (>60 ml/min) > 60 BUN/Creatinine Ratio (7 - 25 %) 22.5 Glucose (65 - 99 mg/dL) 886 *H Hemoglobin A1c (4.2 - 5.8 %) 14.6 H Serum Osmolality (285 - 295 MOSM/KG) 329 H Lactic Acid (0.7 - 2.1 mmol/L) 4.0 H Calcium (8.4 - 10.2 mg/dL) 8.7 Magnesium (1.6 - 2.3 mg/dL) 1.9 Total Bilirubin (0.2 - 1.3 mg/dL) 0.6 AST (14 - 36 U/L) 21 ALT (9 - 52 U/L) 28 Alkaline Phosphatase (<127 U/L) 145 H Total Protein (6.3 - 8.2 g/dL) 6.4 Albumin (3.5 - 5.0 g/dL) 3.4 L Globulin (1.9 - 4.2 gm/dL) 3.0 Albumin/Globulin Ratio (1.1 - 2.2 %) 1.1 Amylase (30 - 110 U/L) 35 Lipase (23 - 300 U/L) 42 Total Beta HCG (NEGATIVE) NEGATIVE Hematology CBC w Diff MAN DIFF ORDERED WBC (4.8 - 10.8 /CUMM) 13.4 H RBC (4.20 - 5.40 /CUMM) 3.92 L Hgb (12.0 - 16.0 G/DL) 11.4 L Hct (37 - 47 %) 33.6 L MCV (81.0 - 99.0 FL) 85.5 MCH (27.0 - 31.0 PG) 29.1 RDW (11.5 - 14.5 %) 14.8 H Plt Count (130 - 400 /CUMM) 293 MPV (7.4 - 10.4 FL) 9.5 Segmented Neutrophils (42.2 - 75.2 %) 85 H Band Neutrophils (0.0 - 5.0 %) 1 Lymphocytes (20.5 - 51.1 %) 13 L Monocytes (1.7 - 9.3 %) 1 L Platelet Estimate (ADEQUATE) ADEQUATE Normocytic RBCs VERIFIED Normochromic RBCs VERIFIED PUBS MCHC (33.0 - 37.0 G/DL) 34.1 Other Body Source Fld Total RBCs Counted (%) 100 Toxicology Acetone Level (NEGATIVE) NEGATIVE Diagnostic Data EKG Results Tracing was personally reviewed and shows sinus tachycardia 108 bpm without obvious infarct pattern CXR Results IMPRESSION: Redemonstration of extensive multifocal airspace opacities, similar to prior. Appearance may reflect edema or pneumonia. Other Results Telemetry tracings were personally reviewed and shows sinus rhythm and sinus tachycardia Assessment/Plan Assessment/Plan 1. Respiratory insufficiency 2. Hyperglycemia/hyperosmolar state 3. Severe familial hypertriglyceridemia, ? Recently received PCS K-9 injection 4. Possible flash pulmonary edema 5. History of nicotine dependence 6. Possible pneumonia The patient's respiratory insufficiency may be due to pneumonia additionally with a possible episode of flash pulmonary edema last night. On exam today she shows no evidence of decompensated congestive heart failure. Certainly reasonable to obtain a transthoracic echocardiogram to assess her ventricular function. She did receive Narcan last night which can be complicated by pulmonary edema as known side effect. Given her risk factors for coronary disease a transient episode of cardiac ischemia is in the differential although her ECG and troponins do not suggest ongoing ischemia or acute coronary syndrome. Please try to obtain records from her assistant foreman in [place]. We will use Lasix when necessary for the time being. We've initiated her on daily aspirin therapy. Antibiotics per pulmonary. She may require a chest CT at some point. She should be maintained on telemetry for the time being. Continue lipid regimen. Endocrinology is following. Mitchel Ricketts MD [facility] Consult Acknowledgment - Thank you for your consult request.
--- NOTE | 2016-09-25 11:46 | NUR ---
PT MORE AWAKE/ALERT. LASIX 20MG IVP GIVEN W GOOD DIURESIS THUS FAR. SPIRIVA ADDED TO RESP TX. RT NOTIFIED. 1130 B/S 419. DR MULLINS NOTIFIED. PT GIVEN NOVOLOG PER EMAR AND PROVIDED W CARB 1 DIET.
--- NOTE | 2016-09-25 11:48 | NUR ---
PT DOWNGRADED TO TELEMETRY AND REMAINS IN ICU A HOLD.
[2016-09-25 16:00] VITALS: BP 124/70
--- NOTE | 2016-09-25 16:45 | CT SCAN REPORT ---
EXAMINATION: CT ANGIOGRAM OF THE CHEST WITH AND WITHOUT CONTRAST (CT PULMONARY ANGIOGRAM FOR PE) CLINICAL INFORMATION: Tachycardia with hypoxia. COMPARISON: Thoracic portion of an abdominal and pelvic CT performed 08/29/2016. Multiple recent chest x-rays. TECHNIQUE: Prior to contrast administration, noncontrast localization images were obtained. Subsequently, multidetector volumetric imaging was performed from the thoracic inlet to below the diaphragms following the administration of 80 mL Omnipaque 350 intravenous contrast. No contrast reaction reported. Sagittal, coronal, and MIP oblique sagittal reformatted images were obtained on the CT workstation, uploaded to PACS, and reviewed. Total exam dose-length product 426 mGy-cm. FINDINGS: QUALITY OF STUDY/CONTRAST BOLUS: Satisfactory PULMONARY ARTERIES: There is no evidence of filling defects to suggest pulmonary emboli. THORACIC AORTA: No aneurysm or dissection. LUNG: There is diffuse groundglass opacity throughout the lungs bilaterally which has increased significantly compared with the with the visualized portions of the lungs on 08/29/[address] Given the acuteness and diffuse involvement, a mosaic perfusion pattern and small airways disease is thought to be less likely although not entirely excluded. Findings are most consistent with an atypical pneumonia or pneumonitis including hypersensitivity or developing fibrosis. Hemorrhage and adult respiratory distress syndrome as well as pulmonary edema could have this appearance. The heart is not enlarged and there is no evidence of pleural effusions to suggest pulmonary edema. Question the patient's immune status for opportunistic infections. Pulmonary consultation should be considered if not already performed. PLEURA: No pleural effusion or pneumothorax. MEDIASTINUM: The heart is not enlarged. There is no lower cervical, mediastinal, or hilar adenopathy identified. CHEST WALL/AXILLA: No axillary or internal mammary lymphadenopathy. OSSEOUS STRUCTURES: No acute or suspicious osseous abnormality. UPPER ABDOMEN: Unremarkable. IMPRESSION: 1. No evidence of pulmonary embolism. 2. Diffuse airspace disease is again identified. Pulmonary consultation should be considered if not already performed. Findings were discussed directly with Gabriella Colon MD at 1545 hours 09/25/2016.
--- NOTE | 2016-09-25 18:48 | NUR ---
EVENT: APPROX 1830 PT BEGAN COUGHING AND FELT SOB AND ANXIOUS, RR 40'S , DESATING TO 84% ON 4L. PT REPORTED PAIN WITH COUGHING 10/10. DISCUSSED WITH RT AND DR MCPHERSON. RESP TX HAD BEEN GIVEN AN HOUR PRIOR. ORDERED LASIX 20 IVP, MSO4 2MG GIVEN IVP AND XANAX .25MG PO. PT PLACED ON 50 % HIGH FLOW NASAL CANNULA, COUGHING SUBSIDED AND PT REPORTS FEELING BETTER.
--- NOTE | 2016-09-25 19:24 | ECHOCARDIOGRAM REPORT ---
MINESH MONTANA Age: 46 : 1970 Gender: F Exam Date: 09/25/2016 10:20 Exam Location: [facility] Ht (in): Wt (lb): BSA: BP: 134 / 86 Ordering Physician: YFN MULLINS MD Referring Physician: Robby Ricketts M.D. Technologist: KENDRICK Room Number: 104-1 Indications: RESPIRATORY FAILURE Rhythm: Technical Quality: Fair FINDINGS Left Ventricle Left ventricular cavity size normal. Left ventricular wall thickness mildly increased. No obvious regional wall motion abnormalities. Left ventricular ejection fraction is estimated at 65 %. Right Ventricle Normal right ventricular size and function. Right Atrium Normal right atrial size. Left Atrium Normal left atrial size. Mitral Valve Structurally normal mitral valve. No mitral stenosis. Trace mitral regurgitation. Aortic Valve No aortic stenosis. Trileaflet aortic valve. Tricuspid Valve Tricuspid valve not well visualized, grossly normal. Trace tricuspid regurgitation. Unable to estimate the right ventricular systolic pressure. Pulmonic Valve Pulmonic valve not well visualized, grossly normal. Pericardium No pericardial effusion. Great Vessels Normal size aortic root. CONCLUSIONS Left ventricular cavity size normal. Left ventricular wall thickness mildly increased. No obvious regional wall motion abnormalities. Left ventricular ejection fraction is estimated at 65 %. Normal right ventricular size and function. Unable to estimate the right ventricular systolic pressure. No pericardial effusion. Robby Ricketts M.D. (Electronically Signed) Final Date: 25 September 2016 19:23 MEASUREMENTS (Male / Female) Normal Values 2D ECHO LV Diastolic Diameter PLAX 3.9 cm 4.2 - 5.9 / 3.9 - 5.3 cm LV Systolic Diameter PLAX 2.4 cm 2.1 - 4.0 cm LV Fractional Shortening PLAX 38.5 % 25 - 46 % LV Ejection Fraction 2D Teich 69.4 % IVS Diastolic Thickness 1.1 cm LVPW Diastolic Thickness 1.0 cm LV Relative Wall Thickness 0.5 LVOT Diameter 1.9 cm Aortic Root Diameter 2.5 cm LA Systolic Diameter LX 2.4 cm 3.0 - 4.0 / 2.7 - 3.8 cm Ascending Aorta Diameter 2.8 cm DOPPLER AV Peak Velocity 165.0 cm/s AV Peak Gradient 10.9 mmHg AV Mean Velocity 111.0 cm/s AV Mean Gradient 6.0 mmHg AV Velocity Time Integral 24.6 cm LVOT Peak Velocity 105.0 cm/s LVOT Peak Gradient 4.4 mmHg LVOT Mean Velocity 69.7 cm/s LVOT Mean Gradient 2.0 mmHg LVOT Velocity Time Integral 21.0 cm LVOT Stroke Volume 59.5 cm AV Area Cont Eq vti 2.4 cm AV Area Cont Eq pk 1.8 cm Mitral E Point Velocity 78.5 cm/s Mitral A Point Velocity 98.2 cm/s Mitral E to A Ratio 0.8 TR Peak Velocity 274.0 cm/s TR Peak Gradient 30.0 mmHg PV Peak Velocity 93.7 cm/s PV Peak Gradient 3.5 mmHg LV E' Lateral Velocity 7.8 cm/s Mitral E to LV E' Lateral Ratio 10.1 LV E' Septal Velocity 8.9 cm/s Mitral E to LV E' Septal Ratio 8.9
[2016-09-26] VITALS: BP 102/64
[2016-09-26 05:04] LABS: HEMATOCRIT 29.3 % (37-47); MEAN CORPUSCULAR HGB 28.8 PG (27.0-31.0); MEAN CORPUSCULAR HGB CONC 33.7 G/DL (33.0-37.0); MEAN CORPUSCULAR VOLUME 85.4 FL (81.0-99.0); MEAN PLATELET VOLUME 9.2 FL (7.4-10.4); PLATELET COUNT 290 /CUMM (130-400); RBC DISTRIBUTION WIDTH 15.6 % (11.5-14.5); RED BLOOD CELL CT 3.43 /CUMM (4.20-5.40); WHITE BLOOD CELL COUNT 16.6 /CUMM (4.8-10.8)
--- NOTE | 2016-09-26 07:24 | PN- Resident CRCU ---
Subjective HPI/CRCU Issues: Afebrile, hemodynamically stable, and saturating well on 4L NC. No acute overnight events reported. Patient only current complaint is feeling anxious. Patient has 2 IVs on the right arm with no symptoms or signs suggestive infiltration or infection. Patient has high flow oxygen on the room. 24 Hour Events: Tmax 98.4 HR 112 - 78 with avrage of 90/min BP lowest 90/60 and highest 124/70 Saturating 90s on 4 L NC Yesterday I/O 912/2975 Total balance to date 5123/4750 + Objective Vital Signs & I&O Last 8 Hrs of Vitals and I&O: Vital Signs Date Time Temp Pulse Resp B/P B/P Pulse O2 O2 Flow FiO2 Mean Ox Delivery Rate 09/26 08 94 Nasal 4.0L Cannula 09/26 0400 96 Nasal 4.0L Cannula 09/26 0000 94 Nasal 4.0L Cannula 09/26 0000 98.0 86 24 102/64 94 Nasal 4.0L Cannula 09/25 2000 97 Nasal 50% Cannula 09/25 1847 87 Nasal 5.0L Cannula 09/25 1733 94 Nasal 4.0L Cannula 09/25 1600 93 Nasal 4.0L Cannula 09/25 1600 98.0 96 22 124/70 93 Nasal 4.0L Cannula 09/25 1200 92 Nasal 4.0L Cannula Intake & Output 09/26 1600 09/26 0800 09/26 0000 Intake Total 60 480 Output Total 400 1150 Balance -340 -670 Intake, IV 300 Intake, Oral 60 180 Number 0 0 Bowel Movements Output, Urine 400 1150 Exam General Appearance: alert, awake, anxious, obese Head: atraumatic, normal appearance Respiratory: wheezing Cardiovascular: regular rate/rhythm Gastrointestinal: soft, non-tender Extremities: no edema Cranial Nerves: normal speech, PERRL Current Medications: Current Medications Sig/Samara Start time Last Medication Dose Route Stop Time Status Admin Acetaminophen 650 MG Q6P PRN 09/24 0300 AC PO Albuterol Sulfate 2 PUF Q4-6 PRN PRN 09/24 1000 AC INH Albuterol Sulfate 3 ML EVERY 4 HRS/AWAKE 09/24 0845 AC 09/26 INH 0900 Alprazolam 0.25 MG ONCE ONE 09/26 0900 DC PO 09/26 0901 Alprazolam 0.25 MG ONCE ONE 09/25 1745 DC 09/25 PO 09/25 1746 1839 Aspirin 81 MG DAILY 09/25 1000 AC 09/25 PO 1125 Atorvastatin Calcium 80 MG 1700 09/24 1700 AC 09/25 PO 1714 Azithromycin 500 MG 2200 09/24 2200 AC 09/25 Sodium Chloride 250 ML IV 2116 Benzonatate 100 MG TID 09/25 1831 AC 09/25 PO 2115 Ceftriaxone Sodium 1,000 MG 2200 09/24 2200 AC 09/25 IV 2116 Fenofibrate 145 MG DAILY 09/24 1043 AC 09/25 PO 0936 Fluticasone 4 PUF BID 09/24 2200 09/25 Propionate INH 2115 Furosemide 20 MG 7:30 AM, & 4:30 PM 09/26 0730 AC 09/26 IV 0631 Furosemide 20 MG ONCE ONE 09/25 184 DC 09/25 IV 09/25 1846 1843 Guaifenesin 600 MG Q12 09/24 2200 09/25 PO 2116 Heparin Sodium 5,000 UNIT Q8 09/24 06 09/26 (Porcine) SC 0545 Insulin Aspart 0 AT BEDTIME 09/24 2200 09/24 SC 2200 Insulin Aspart 0 TIDAC 09/24 1700 09/26 SC 0735 Insulin Detemir 60 UNITS BID 09/26 1000 SC Insulin Detemir 50 UNITS BID 09/25 1000 DC 09/25 SC 2122 Ipratropium [place] 2.5 ML EVERY 4 HRS/AWAKE 09/24 0845 DC 09/25 INH 0845 Ketorolac 15 MG ONCE ONE 09/26 1999 DC 09/25 Tromethamine IV 09/25 Methylprednisolone 40 MG BID 09/26 1000 AC IV Morphine Sulfate 2 MG Q12P PRN 09/25 1000 AC 09/25 IV 1839 Morphine Sulfate 2 MG Q6-PRN PRN 09/24 2345 DC IV Omeprazole 40 MG DAILY AC 09/25 0700 AC 09/26 PO 0545 Oxycodone HCl 5 MG Q6P PRN 09/24 0315 AC 09/24 PO 0856 Paroxetine HCl 20 MG ONCE ONE 09/26 0845 DC PO 09/26 0846 Paroxetine HCl 20 MG DAILY 09/24 1000 AC 09/25 PO 0936 Potassium Chloride 20 MEQ ONCE ONE 09/26 599 DC 09/26 PO 09/26 0601 0631 Quetiapine Fumarate 100 MG QPM 09/26 2200 CAN PO Quetiapine Fumarate 100 MG QPM 09/24 2200 AC / PO 2116 Tiotropium [place] 1 PUF DAILY 09/25 1000 CAN INH Tiotropium [place] 1 PUF DAILY 09/25 1000 AC 09/25 INH 1132 Tizanidine HCl 2 MG BID 09/24 1000 AC / PO 2116 Tramadol HCl 50 MG Q6 09/244 AC 09/26 PO 0545 Impression/Plan Impression/Problem List Impression: 46/F with PMH insulin-dependant diabetes mellitus, prior tobacco use (quit 3 years ago), depression, anxiety, several episodes of hypertriglyceridemia- induced pancreatitis and plasmapharesis for triglycerides greater than 60,000 who presented to [facility] with chief complaint of malaise, abdominal pain and shortness of breath. In the ED: Vital signs showed T 99.1, HR 106, RR 18, BP 124/84 and O2 saturation 09% on room air. Labs were significant for WBC 13.4, H&H 13.4/33.6, plt 293, MCV 85.5, left shift with 85% segmented neutrophils and 1 band. BEP showed a Na of 124, K 4.5, CL 91, HCO3 18, BUN 18, cre 0.8, AG 14, glucose 886, negative acetone, serum osmolality 329, lactic acid 4.0, AST and ALT with normal limits, alkaline phosphatase 145. VBG was done and showed: PH 7.38, PCO2 39, bicarbonate 22. CXR was significant for right lower lobe and left lower lobe parahilar infiltrate. CT abdomen/pelvis done at [facility] showed interval worsening of patchy groundglass airspace opacities in visualized bilateral lower lobes, right middle lobe and lingula, s/o worsening infective/ inflammatory infiltrate. No acute abdominal pelvic abnormalities. Small left adrenal nodule likely adenoma. Patient is currently admitted to the ICU and the following is the management: 1. Hyperosmolar hyperglycemic nonketotic state with insulin non-compliance * Endocrinology consult with Dr. Marcos MD appreciated * HgA1C on admission of 14.6 * Patient off of insulin drip * Will increase SC levemir to 60 BID along with TIDAC/HS novolog sliding scales * CC1 diet * Continue accuchecks TIDAC/HS 2. Acute hypoxic respiratory failure * Noted bilateral pulmonary infiltrates, differential CAP vs inflammatory disease vs fluid overload * With noted lactic acidosis on admission, concern for underlying infectious etiology high on differential * Hold off on further steroids at this point * Spiriva one puff daily, flovent 220 mcg 2 puff BID, mucinex BID * Continue IV ceftriaxone and azithromycin pending final culture results (NGTD) * IV Lasix 20 mg daily * ESR, CRP and RF high; follow up BRADY, ANCA, Sjogrens Ab 3. Pseudohyponatremia * Na on admission 124, corrected Na of 136 due to hyperglycemia * Monitor ICU bundle 4. Familial hypertriglyceridemia * With ASCVD risk calculator, patient's 10 year risk is 11-13% for heart disease or stroke * Continue ASA 81 mg PO daily * Continue high-intensity statin and fenofibrate * Repeat lipid panel in AM * Records from tool inspector unable to be obtained as patient does not know tool inspector's name and no med history from tool inspector * Low fat, low carb diet FULL CODE DVTP: Heparin SC Diet: CC1 Mild-moderate pain pathway Problem List: 1. Pneumonia 2. Abdominal pain 3. Hyperosmolar (nonketotic) coma Pain Ratin Tomorrow's Labs & Rationales: ICU bundle, Lipid, CBC Plan DVT/Prophylaxis: pharmacological DVT/Prophylaxis: pharmacological
--- NOTE | 2016-09-26 07:32 | RADIOLOGY REPORT ---
EXAMINATION: XR PORTABLE CHEST CLINICAL INFORMATION: Pulmonary edema. Pneumonia versus cardiogenic pulmonary edema. COMPARISON: 09/25/2016 TECHNIQUE: Portable frontal view of the chest was obtained. FINDINGS: Low lung volumes. Diffuse patchy and confluent airspace disease bilaterally without significant change from prior. The cardiac silhouette is normal in size. No significant effusion. No pneumothorax. IMPRESSION: No change in diffuse bilateral airspace disease.
[2016-09-26 08:00] VITALS: BP 108/74
--- NOTE | 2016-09-26 09:28 | PN- Diabetes ---
Assessment/Plan Assessment: 46-year-old female, [place], with past medical history significant for diabetes typ2, approximately 10 episodes of pancreatitis due to significantly elevated triglyceride with the highest level of over 60,000 required plasmapheresis 3 years ago,who comes in for chief complaint of malaise, cough, rib pain and shortness of breath. She was admitted for pneumonia, hyperosmolar hyperglycemic state and significant dyslipidemia. Insulin drip was discontinued on 09/24/2016 and she was put on Levemir 50 units twice a day, Novolog coverage before meals and Novolog coverage at bedtime. However, she hasn't been compliance with the diet. Her FSGs were 294, 208 and 280. With regards to dyslipidemia, she is on atorvastatin 80 mg daily, fenofibrate diet 145 mg daily and low fat diet. Repeat lipid panel this morning showed CHOL 538, TRIG 1904, LDL 37.96 and HDL 43. She still has cough, SOB and chest pain. On exam, there are significant rales. Most likely she will be on solumedrol today. Plan: 1. continue diabetic and low fat diet; 2. increase Levemir to 60 units twice a day; 3. adjust Novolog coverage before meals-- detail see the insulin order sheet. 4. continue the current Novolog coverage at bedtime; 5. monitor FSGs. 6. I will recommend increasing Novolog coverage before meals by 4 units if she will be on Solumedrol 40 mg iv every 12 hours. However, please call me if there are any questions. 7. monitor TRIG afgain tomorrow am. will follow. Inpatient Diabetes Orders Before Each Meal: Bolus Insulin: Novolog < 80 mg/dl: no coverage 80-100 mg/dl: 13 units 101-120 mg/dl: 13 units 121-150 mg/dl: 13 units 151-200 mg/dl: 16 units 201-250 mg/dl: 19 units 251-300 mg/dl: 22 units 301-350 mg/dl: 24 units 351-400 mg/dl: 26 units > 400 mg/dl: 28 units Subjective Subjective: She complains of having cough, SOB and chest pain when she coughs. Objective Last 24 Hrs of Vital Signs/I&O Vital Signs Date Time Temp Pulse Resp B/P B/P Pulse O2 O2 Flow FiO2 Mean Ox Delivery Rate 09/26 0908 97 Nasal 4.0L Cannula 06/06 0800 94 Nasal 4.0L Cannula 09/26 0400 96 Nasal 4.0L Cannula 09/26 0000 94 Nasal 4.0L Cannula 09/26 0000 98.0 86 24 102/64 94 Nasal 4.0L Cannula 09/26 1999 97 Nasal 50% Cannula 09/25 1847 87 Nasal 5.0L Cannula 09/25 1733 94 Nasal 4.0L Cannula 09/25 1600 93 Nasal 4.0L Cannula 09/25 1600 98.0 96 22 124/70 93 Nasal 4.0L Cannula 09/25 1200 92 Nasal 4.0L Cannula Intake & Output 09/26 0809/26 0000 Intake Total 60 480 Output Total 400 1150 Balance -340 -670 Intake, IV 300 Intake, Oral 60 180 Number 0 0 Bowel Movements Output, Urine 400 1150 Findings Pertinent Lab/Geo Results: Laboratory Tests 09/26 09/26 0445 0445 Chemistry Sodium (137 - 145 mmol/L) 136 L Potassium (3.5 - 5.1 mmol/L) 3.7 Chloride (98 - 107 mmol/L) 104 Carbon Dioxide (22 - 30 mmol/L) 24 Anion Gap (5 - 16) 8 BUN (7 - 17 mg/dL) 26 H Creatinine (0.5 - 1.0 mg/dL) 0.7 Estimated GFR (>60 ml/min) > 60 Glucose (65 - 99 mg/dL) 258 H Calcium (8.4 - 10.2 mg/dL) 8.4 Phosphorus (2.5 - 4.5 mg/dL) 3.5 Magnesium (1.6 - 2.3 mg/dL) 2.1 Total Bilirubin (0.2 - 1.3 mg/dL) 0.3 AST (14 - 36 U/L) 23 ALT (9 - 52 U/L) 28 Albumin (3.5 - 5.0 g/dL) 2.7 L Triglycerides (<150 mg/dL) 1904 H Cholesterol (<200 MG/DL) 530 H LDL Cholesterol Direct (<100 mg/dL) 37.96 LDL Cholesterol, Calc (65 - 129 mg/dL) ND HDL Cholesterol (40 - 60 mg/dL) 43 Cholesterol/HDL Ratio (0.00 - 4.23 %) 12.3 H Aldolase Pending Hematology CBC w Diff MAN DIFF ORDERED WBC (4.8 - 10.8 /CUMM) 16.6 H RBC (4.20 - 5.40 /CUMM) 3.43 L Hgb (12.0 - 16.0 G/DL) 9.9 L Hct (37 - 47 %) 29.3 L MCV (81.0 - 99.0 FL) 85.4 MCH (27.0 - 31.0 PG) 28.8 RDW (11.5 - 14.5 %) 15.6 H Plt Count (130 - 400 /CUMM) 290 MPV (7.4 - 10.4 FL) 9.2 Segmented Neutrophils (42.2 - 75.2 %) 83 H Band Neutrophils (0.0 - 5.0 %) 4 Lymphocytes (20.5 - 51.1 %) 10 L Monocytes (1.7 - 9.3 %) 1 L Eosinophils (0 - 5.0 %) 2 Nucleated RBCs (0.0 - 0.0 /100WBC) 1 H Platelet Estimate (ADEQUATE) ADEQUATE Anisocytosis 1+ PUBS MCHC (33.0 - 37.0 G/DL) 33.7 Other Body Source Fld Total RBCs Counted (%) 100 Serology Hepatitis C Antibody (NONREACTIVE) NONREACTIVE HIV 1&2 Ab Western Blot (NONREACTIVE) NONREACTIVE
--- NOTE | 2016-09-26 09:29 | PN- Cardiology ---
Subjective Subjective: Patient still complains of shortness of breath. She denies chest pain. She notes coughing and wheezing. Review of Systems: Eyes no blurred or double vision Ears no deafness or ringing Nose and throat no recurrent sinusitis Lungs per history of present illness Heart per history of present illness Abdomen no nausea vomiting Musculoskeletal occasional muscle and joint pains Psych no anxiety or depression Neuro without recurrent headache or seizures Endocrine no heat or cold intolerance Objective Vital Signs and I&Os Vital Signs Date Time Temp Pulse Resp B/P B/P Pulse O2 O2 Flow FiO2 Mean Ox Delivery Rate 09/26 0908 97 Nasal 4.0L Cannula 09/26 0800 94 Nasal 4.0L Cannula 09/26 0400 96 Nasal 4.0L Cannula 09/26 0000 94 Nasal 4.0L Cannula 09/26 0000 98.0 86 24 102/64 94 Nasal 4.0L Cannula 09/25 2000 97 Nasal 50% Cannula 09/25 1847 87 Nasal 5.0L Cannula 09/25 1733 94 Nasal 4.0L Cannula 09/25 1600 93 Nasal 4.0L Cannula 09/25 1600 98.0 96 22 124/70 93 Nasal 4.0L Cannula 09/25 1200 92 Nasal 4.0L Cannula Intake & Output 09/26 1600 09/26 0800 /06 0000 /05 1600 09/25 0800 09/25 0000 Intake Total 60 480 621 461 8402 Output Total 400 1150 1425 1775 [facility] [place] -340 -670 -1065 -1529 2016 Intake, IV 300 004 008 9527 Intake, Oral 60 180 70 960 Number 0 0 0 0 Bowel Movements Output, Urine 400 1150 1425 1775 Patient 145 lb Weight Weight Bed scale Measurement Method Physical Exam: Patient is a well-developed well-nourished female appearing in moderate respiratory distress HEENT is unremarkable Neck is supple there is no JVD Lungs decreased air entry with scattered rhonchi and wheezes bilaterally Heart regular rhythm S1 and S2 are normal no murmurs gallops or rubs Abdomen bowel sounds positive Extremities without edema Current Medications: Current Medications Sig/Samara Start time Last Medication Dose Route Stop Time Status Admin Acetaminophen 650 MG Q6P PRN / 0300 AC PO Albuterol Sulfate 2 PUF Q4-6 PRN PRN 09/24 1000 AC INH Albuterol Sulfate 3 ML EVERY 4 HRS/AWAKE 09/24 0845 AC 09/26 INH 0900 Alprazolam 0.25 MG ONCE ONE 09/26 0900 DC PO 09/26 0901 Alprazolam 0.25 MG ONCE ONE 09/25 1745 DC 09/25 PO 09/25 1746 1839 Aspirin 81 MG DAILY 09/25 1000 AC 06 PO 1125 Atorvastatin Calcium 80 MG 1700 09/24 1700 AC 09/25 PO 1714 Azithromycin 500 MG 2200 09/24 2200 AC 09/25 Sodium Chloride 250 ML IV 2116 Benzonatate 100 MG TID 09/25 1831 AC 09/25 PO 2115 Ceftriaxone Sodium 1,000 MG 2200 09/24 2200 AC 09/25 IV 2116 Fenofibrate 145 MG DAILY 09/24 1043 AC 09/25 PO 0936 Fluticasone 4 PUF BID 09/24 2200 AC 09/25 Propionate INH 2115 Furosemide 20 MG 7:30 AM, & 4:30 PM 09/26 0730 AC 09/26 IV 0631 Furosemide 20 MG ONCE ONE 09/25 1845 DC 09/25 IV 09/25 1846 1843 Guaifenesin 600 MG Q12 09/24 2200 AC 09/25 PO 2116 Heparin Sodium 5,000 UNIT Q8 09/24 06 AC 09/26 (Porcine) SC 0545 Insulin Aspart 0 AT BEDTIME 09/24 2200 09/24 SC 2200 Insulin Aspart 0 TIDAC 09/24 1700 AC 09/26 SC 0735 Insulin Detemir 60 UNITS BID 09/26 1000 AC SC Insulin Detemir 50 UNITS BID 09/25 1000 DC 09/25 SC 2122 Ipratropium [place] 2.5 ML EVERY 4 HRS/AWAKE 09/24 0845 DC 09/25 INH 0845 Ketorolac 15 MG ONCE ONE 09/26 1999 DC 05 Tromethamine IV 09/25 2000 195 Methylprednisolone 40 MG BID 09/26 1000 CAN IV Morphine Sulfate 2 MG Q12P PRN 09/25 1000 AC 09/25 IV 1839 Morphine Sulfate 2 MG Q6-PRN PRN 09/24 2345 DC IV Omeprazole 40 MG DAILY AC 09/25 0700 AC 09/26 PO 0545 Oxycodone HCl 5 MG Q6P PRN 09/24 0315 AC 09/24 PO 0856 Paroxetine HCl 20 MG ONCE ONE 09/26 0845 DC PO 06/06 0846 Paroxetine HCl 20 MG DAILY 09/24 1000 AC 09/25 PO 0936 Potassium Chloride 20 MEQ ONCE ONE 09/26 0600 DC 09/26 PO 09/26 0601 0631 Quetiapine Fumarate 100 MG QPM 09/26 2200 CAN PO Quetiapine Fumarate 100 MG QPM 09/24 2200 AC 09/25 PO 2116 Tiotropium [place] 1 PUF DAILY 09/25 1000 CAN INH Tiotropium [place] 1 PUF DAILY 09/25 1000 AC 09/25 INH 1132 Tizanidine HCl 2 MG BID 09/24 1000 AC 09/25 PO 2116 Tramadol HCl 50 MG Q6 09/24 2044 AC 09/26 PO 0545 Results Last 48 Hrs of Labs/Mics: Laboratory Tests 09/26/16444: Aldolase Pending 09/26/16444: Anion Gap 8, Estimated GFR > 60, Glucose 258 H, Calcium 8.4, Phosphorus 3.5, Magnesium 2.1, Total Bilirubin 0.3, AST 23, ALT 28, Albumin 2.7 L, Triglycerides 1904 H, Cholesterol 530 H, LDL Cholesterol Direct 37.96, LDL Cholesterol, Calc ND, HDL Cholesterol 43, Cholesterol/HDL Ratio 12.3 H, CBC w Diff MAN DIFF ORDERED, RBC 3.43 L, MCV 85.4, MCH 28.8, RDW 15.6 H, MPV 9.2, Segmented Neutrophils 83 H, Band Neutrophils 4, Lymphocytes 10 L, Monocytes 1 L, Eosinophils 2, Nucleated RBCs 1 H, Platelet Estimate ADEQUATE, Anisocytosis 1+, PUBS MCHC 33.7, Fld Total RBCs Counted 100, Hepatitis C Antibody NONREACTIVE , HIV 1&2 Ab Western Blot NONREACTIVE 09/25/16414: Rheum Factor Semi-Quant 13.5 H 09/25/16414: Anion Gap 8, Estimated GFR > 60, Glucose 329 H, Calcium 8.4, Phosphorus 2.9, Magnesium 2.0, Total Bilirubin 0.4, Direct Bilirubin 0.3, AST 24, ALT 30, Alkaline Phosphatase 129 H, Creatine Kinase 87, Troponin I < 0.01, C-Reactive Prot, Quant 8.5 H, C-React Prot High Sens > 15.0 H, Total Protein 5.6 L, Albumin 2.7 L, Triglycerides 1940 H, Cholesterol 550 H, LDL Cholesterol Direct 40.08, LDL Cholesterol, Calc ND, HDL Cholesterol 47, Cholesterol/HDL Ratio 11.7 H, TSH 0.295, Free T4 1.44, CBC w Diff MAN DIFF ORDERED, RBC 3.53 L , MCV 85.8, MCH 28.5, RDW 15.7 H, MPV 9.6, Segmented Neutrophils 88 H, Band Neutrophils 4, Lymphocytes 7 L, Monocytes 1 L, Platelet Estimate ADEQUATE, Normocytic RBCs VERIFIED, Normochromic RBCs VERIFIED, PUBS MCHC 33.2, ESR Westergren 129 H, ANCA Pending, SS-A/Ro Antibody Pending, SS-B/La Antibody Pending 09/25/16 0010: pH 7.35, pCO2 32 L, pO2 82, HCO3 18 L, ABG O2 Sat (Measured) 95.0 L, P-50 ( Temp Corrected) N, Carboxyhemoglobin 0.3 L, O2 Concentration % 45%, O2 Delivery Method HFNC, Phlebotomy Draw Site RIGHT BRACHIAL 09/24/16 1820: Lactic Acid 1.3 09/24/16 1610: Anion Gap 12, Estimated GFR > 60, Glucose 132 H, Lactic Acid 2.1, Calcium 8.5, Phosphorus 4.0, Magnesium 2.0, Total Bilirubin 0.4, AST 20, ALT 28, Albumin 2.9 L, Amylase 47, Lipase 37 09/24/16 1220: Lactic Acid 3.6 H 09/24/16 1015: BRADY Titer ND, Anti-Nuclear Antibody NEG 1:40 IFA ASSAY Microbiology 09/24 1100 UPPER RESP: Surveillance Culture - COMP 09/24 1100 GI: Surveillance Culture - COMP Telemetry personally reviewed sinus rhythm Recent Imaging Studies: Chest x-ray IMPRESSION: No change in diffuse bilateral airspace disease. Assessment/Plan Assessment/Plan 1. Respiratory insufficiency due to pneumonia. 2. Hyperglycemia/hyperosmolar state 3. Severe familial hypertriglyceridemia, ? Recently received PCS K-9 injection 4. Possible flash pulmonary edema but more than likely her respiratory insufficiency secondary to pneumonia. She has a normal ejection fraction on echocardiogram 5. History of nicotine dependence Recommendations 1. Continue aggressive pulmonary management for her pneumonia 2. Continue to monitor on telemetry 3. She is very mild prerenal azotemia therefore feel that she does not appear to be fluid overloaded and would consider discontinuing Lasix. Continue telemetry? Yes
--- NOTE | 2016-09-26 10:17 | NUR ---
DR WILSON IN TO ASSESS PT AND DISCUSS POC. TRANSFER ARRANGEMENTS HAVE BEEN MADE TO TX PT TO [facility] FOR ESCALATION OF CARE. PT UNDERSTANDS POC AND IS AGREEABLE TO TRANSFER. CASE MANAGEMENT ADVISED, RECORDS COPIED AND FILMS ORDERED FROM FILM LIBRARY.
--- NOTE | 2016-09-26 10:19 | Discharge Summary ---
Visit Information Visit Dates Admission Date: 09/24/16 Discharge Date: 09/26/2016 Hospital Course Course Attending Physician: RG TORRES,KAREN Primary Care Physician: UNKNOWN Hospital Course: 46-year-old female, [place], with past medical history significant for diabetes typ2, approximately 10 episodes of pancreatitis due to significantly elevated triglyceride with the highest level of over 60,000 required plasmapheresis 3 years ago,who comes in for chief complaint of malaise, cough, rib pain and shortness of breath. On September 15 she started feeling poor and she was diagnosed with pneumonia and Levaquin was prescribed. Vitals emergency department, MAXIMUM TEMPERATURE 99.4, tachycardic, tachypneic, systolic blood pressure 129-112 and diastolic blood pressure of 70s, oxygen saturation of 97-99% on 2 L nasal cannula. On examination, patient was alert and oriented in mild distress lying in the bed , dry mucous membranes, mild wheezing on lung examination, mildly tachycardic S1 and S2 heard, distended abdomen, grossly intact neurological examination. Labs were significant for leukocytosis of 13.4, hemoglobin of 11.4 and hematocrit of 33.6, platelet count of 293, electrolyte showed pseudohyponatremia sodium of 124, bicarbonate of 18, blood glucose of 886, lactic acid of 4, serum osmolarity of 329, acetone levels negative, UA positive for urine glucose. Patient received 3 L of normal saline, IV steroids, ceftriaxone, azithromycin, inhaler treatment, IV insulin, and pain management. CXR:Right lower lobe and left lower lobe parahilar infiltrate. Patient was admitted in ICU for the management of following problems # Hyperosmolar hyperglycemic state Patient was admitted to the ICU and started on an insulin drip as per endocrinology recommendations. Blood sugar was monitored every hour and IV fluids continued. P insulin drip was decreased as per glucose level by 50-100 mg per DL per hour. She was transitioned to subcutaneous insulin once BS was below 200. Electrolytes were monitored every 4 hours. Patient was started on consistent carbohydrate diet with 3-4 servings of carbohydrate per meal and low fat diet once she was able to eat. Endocrinology was on board to control her blood sugars. Currently patient is on 60 units of Levemir twice a day, a high- dose insulin sliding scale and bedtime insulin scale. # Acute hypoxic respiratory failure due to possible diffuse interstitial lung disease Patient's oxygen requirements were about 4 L on admission. Bilateral pulmonary infiltrates were noted on the chest x-ray. Differentials were community- acquired pneumonia versus other inflammatory lung disease. He was started on IV ceftriaxone and azithromycin. She however she came hypoxic overnight and required BiPAP, received 125 mg steroids and IV Lasix with good diuresis. It appeared that she had gone into flash pulmonary edema because of IV fluids administered at admission. She had also received a dose of Narcan which could have contributed to the pulmonary edema. Given her risk factors for coronary disease a transient episode of cardiac ischemia was also in the differential although her ECG and troponins did not suggest ongoing ischemia or acute coronary syndrome. Her echocardiogram showed normal ejection fraction of 65% with mildly increased left ventricular wall thickness. No wall motion abnormality was noted. A chest CTA done given tachycardia and worsening respiratory status and pulmonary embolism was ruled out. Patient was continued on Flovent, Spiriva and Mucinex. In patient's diffuse parenchymal lung disease (groundglass opacities on the CT ) and semi-acute presentation differentials were broad from idiopathic interstitial pneumonias, idiopathic pulmonary fibrosis, cryptogenic organizing pneumonia, acute interstitial pneumonia , respiratory bronchiolitis , desquamative lung disease to granulomatous lung diseases. Labs revealed a CRP of 8.5, ESR of 129, rheumatoid factor 13.5, negative BRADY ab assay( 1:40), nonreactive HIV. Pending lab tests at this time are Quantiferron Gold test, UR allergen panel, Region 1( [place]) allergen panel, Anti [place] 1 AB, hyper sensitivity pneumonitis panel, aldolase level, Sjogren's panel, ANCA. Patient's pulmonary disease requires a full blown workup for diagnosis. She will require a bronchoalveolar large and transbronchial biopsy. If nondiagnostic a surgical biopsy may be required to evaluate diagnose her lung disease. Eventually patient might require high-dose of steroid therapy which would worsen her triglyceridemia and she needs to be at higher facility where plasmapheresis could be performed. Therefore the patient is being transferred to [facility] for further workup. # Severe familial hypertriglyceridemia Lipid panel was abnormal at presentation with total TG 3046, with total cholesterol 588. Recently received PCS K-9 injection. She had approximately 10 episodes of pancreatitis due to significantly elevated triglyceride with the highest level of over 60,000 requiring plasmapheresis 3 years ag. She was put on a low-fat diet, and continued on atorvastatin 80 mg and fenofibrate 145 mg daily. No steroids were administered other than 125 mg once given her worsening triglyceride levels. TG improved to 1904 during the hospital stay. FULL CODE DVTP: Heparin SC Diet: CC1 Mild-moderate pain pathway Allergies: Coded Allergies: No Known Allergies (11/20/15) Disposition Summary Disposition Principal Diagnosis: Hyperosmolar hyperglycemic nonketotic state with insulin non-compliance Additional Diagnosis: Acute hypoxic respiratory failure Discharge Disposition: other general hospital Discharge Instructions General Discharge Information Code Status: Full Code Patient's Diet: consistent carbohydrate 1 Patient's Activity: as tolerated Follow-Up Instructions/Appts: Patient is being transferred to a higher facility for further workup. Medications at Discharge Discharge Medications: Stop taking the following medications: Metformin HCl (Metformin HCl) 500 MG TABLET ORAL TWICE DAILY Insulin-Lantus (Lantus) 100 UNIT/1 ML VIAL Inject into fatty tissue TWICE DAILY Gemfibrozil (Gemfibrozil) 600 MG TABLET ORAL TWICE DAILY Qty = 60 Fenofibrate (Fenofibrate) 160 MG TABLET ORAL DAILY Qty = 30 Insulin Aspart, Recombinant (Novolog Flexpen) 100 UNIT/ML INSULN.PEN Inject into fatty tissue BEFORE MEALS AND AT BEDTIME Qty = 15 Continue taking these medications: Tizanidine HCl (Tizanidine HCl) 2 MG TABLET 1 Tablet ORAL TWICE DAILY Qty = 60 Comments: PER PT Paroxetine HCl (Paroxetine HCl) 20 MG TABLET 1 Tablet ORAL DAILY Qty = 30 Gabapentin (Gabapentin) 100 MG CAPSULE 1 Capsule ORAL THREE TIMES DAILY Qty = 90 Albuterol Sulfate (Ventolin Hfa) 90 MCG HFA.AER.AD 2 Puff Inhale through mouth as needed for RESPIRATORY Qty = 18 Albuterol Sulfate (Albuterol Sulfate) 2.5 MG/3 ML (0.083 %) VIAL.NEB 1 Vial Inhale Solution as needed for RESPIRATORY Qty = 1 Levofloxacin (Levaquin) 500 MG TABLET 1 Tablet ORAL DAILY Qty = 7 Tobramycin (Tobramycin) 0.3 % DROPS 1 Drop Right Eye DAILY Qty = 1 Ketorolac Tromethamine (Acular) 0.5 % DROPS 1 Drop Right Eye DAILY Qty = 1 Lansoprazole (Lansoprazole) 30 MG CAPSULE.DR 1 Capsule ORAL DAILY Qty = 7 Quetiapine Fumarate (Quetiapine Fumarate) 100 MG TABLET 1 Tablet ORAL Every night Qty = 30 Start taking the following new medications: Insulin Aspart (Novolog) 100 UNIT/ML VIAL 0 Units Inject into fatty tissue 3 TIMES DAILY BEFORE MEALS Qty = 30 No Refills Instructions: < 80 INITIATE HYPOGLYCEMIA 80-150---------13 UNITS 151-200--------16 UNITS 201-250--------19 UNITS 251-300--------22 UNITS 301-350--------24 UNITS 351-400--------26 UNITS MORE THAN 400--28 UNITS AND CALL Ceftriaxone Sodium (Ceftriaxone) 1 GRAM VIAL 1,000 Milligram INTRAVEN 2200 Days = 7 No Refills Fenofibrate Nanocrystallized (Tricor) 145 MG TABLET 145 Milligram ORAL DAILY Qty = 30 No Refills Atorvastatin Calcium (Atorvastatin Calcium) 80 MG TABLET 80 Milligram ORAL 5 PM Qty = 30 No Refills Furosemide (Furosemide) 10 MG/ML VIAL 20 Milligram INTRAVEN 7:30AM & 4:30PM Qty = 30 No Refills Benzonatate (Benzonatate) 100 MG CAPSULE 100 Milligram ORAL THREE TIMES DAILY Qty = 30 No Refills Fluticasone Propionate (Flovent Hfa) 110 MCG/ACTUATION AER.W.ADAP 4 Puff Inhale through mouth TWICE DAILY Qty = 1 No Refills Guaifenesin (Guaifenesin ER) 600 MG TAB.ER.12H 600 Milligram ORAL EVERY 12 HOURS Qty = 30 No Refills Insulin Detemir (Levemir) 100 UNIT/ML VIAL 60 Units Inject into fatty tissue TWICE DAILY Qty = 30 No Refills Insulin Aspart (Novolog) 100 UNIT/ML VIAL 0 Units Inject into fatty tissue AT BEDTIME Qty = 30 No Refills Azithromycin (Azithromycin) 250 MG TABLET 1 Dose Pack ORAL As Directed Qty = 6 No Refills Instructions: 2 the first day followed by 1 for days 2-5 Copies To: ALICJA WILSON MD; GREGORIO TORRES,TAYO Attending MD Review Statement Documenting Attending: ALICJA WILSON MD
[2016-09-26] MEDS ORDERED: NOVOLOG100 UNIT/2 SC ×3 (11:30→11:46)
[2016-09-26] MEDS ORDERED: FLOVENT HFA12 G1 INH (11:30)
[2016-09-26] MEDS ORDERED: ATORVASTATIN CA80 M1 PO (11:30)
[2016-09-26] MEDS ORDERED: TRICOR145 M1 PO (11:30)
[2016-09-26] MEDS ORDERED: CEFTRIAXONE1 G1 IV (11:30)
[2016-09-26] MEDS ORDERED: FUROSEMIDE10 MG/1 M1 IV (11:30)
[2016-09-26] MEDS ORDERED: LEVEMIR100 UNIT/1 SC (11:30)
[2016-09-26] MEDS ORDERED: GUAIFENESIN ER600 MG PO (11:30)
[2016-09-26] MEDS ORDERED: BENZONATATE100 M1 PO (11:30)
[2016-09-26] MEDS ORDERED: AZITHROMYCIN250 M1 PO (11:35)
--- NOTE | 2016-09-26 11:38 | Patient Discharge Instructions ---
Discharge Instructions General Discharge Information You were seen/treated for: SOB and cough Special Instructions: You will be transferred to a different more advanced facility Diet Continue normal diet: No Recommended Diet: Low Fat Activity Full Activity/No Limits: Yes Activity Self Limited: No Acute Coronary Syndrome Inclusion Criteria At DC or during hospital stay patient has or had the following: ACS DIAGNOSIS No Discharge Core Measures Meds if any: Prescribed or Continued at Discharge Meds if any: NOT Prescribed or Continued at Discharge Congestive Heart Failure Inclusion Criteria At DC or during hospital stay patient has or had the following: CHF DIAGNOSIS No Discharge Core Measures Meds if any: Prescribed or Continued at Discharge Meds if any: NOT Prescribed or Continued at Discharge Cerebrovascular accident Inclusion Criteria At DC or during hospital stay patient has or had the following: CVA/TIA Diagnosis No Discharge Core Measures Meds if any: Prescribed or Continued at Discharge Meds if any: NOT Prescribed or Continued at Discharge Venous thromboembolism Inclusion Criteria VTE Diagnosis No VTE Type NONE VTE Confirmed by (Test) NONE Discharge Core Measures - Per Current guidelines, there needs to be overlap - treatment for the first 5 days of Warfarin therapy. - If discharged on Warfarin prior to 5 days of - overlap therapy, the patient will need to be - assessed for post discharge needs including - *Post discharge parental anticoagulation - *Warfarin and/or parental anticoagulation education - *Follow up date to check INR post discharge At least 5 days overlap therapy as Inpatient No Meds if any: Prescribed or Continued at Discharge Note: Overlap Therapy is Warfarin and Anticoagulant Meds if any: NOT Prescribed or Continued at Discharge
--- NOTE | 2016-09-26 12:40 | NUR ---
REPORT CALL[facility]; OG JOHNSON. PT HAS BEEN ASSIGNED TO ROOM 6
[2016-09-26] MEDS ORDERED: AZITHROMYCIN500 M3 PO (12:47)
[2016-09-26] MEDS ORDERED: ZITHROMAX500 M3 IV (13:06)
== END 2016-09-26 13:15 | disposition short-term general hospital (02) | DRG 133 ==
LOC: ERH 19:44 → CRI 09-24 03:08 → ERHI 09-24 03:08 → CRI 09-24 03:08 → ENRESERV 09-24 03:19 → ENTRNSPT 09-24 07:36 → EDTRNSPT 09-24 07:53 → EDTRNSPTTYP 09-24 07:53 → CRI 09-24 08:05 → CMPTRNSPT 09-24 08:47 → CRI 09-26 13:15
PROVIDERS: Emergency Medicine; Student in an Organized Health Care Education/Training Program; ADMIT Student in an Organized Health Care Education/Training Program
PROC: 5A09357 Assistance with Respiratory Ventilation, Less than 24 Consecutive Hours, Continuous Positive Airway Pressure (ICD-10-PCS; principal; 2016-09-25)
DX: J96.01 Acute respiratory failure with hypoxia (principal); E11.01 Type 2 diabetes mellitus with hyperosmolarity with coma; J84.9 Interstitial pulmonary disease, unspecified; J18.9 Pneumonia, unspecified organism; E87.2 Acidosis; K29.70 Gastritis, unspecified, without bleeding; Z79.4 Long term (current) use of insulin; E78.1 Pure hyperglyceridemia; Z87.891 Personal history of nicotine dependence
CPT/HCPCS: 86003; 86021; 86331; 86480; 86606; 86609; CCU; 36415; 80307; 81003; 82436; 86431; 86803; 87040; 87070; 87086; 87389; 87449; 87450; 93005; 93010; 93306; 94644; 96374; 96375; 96376; 99291; J0131; J0456; J0696; J1644; J1815; J1885; J1940; J2310; J2920; J2930; J3490; J7040